=== PATIENT | male | born 1945 | race Caucasian/White ===

== ENCOUNTER 2017-02-12 18:02 | Emergency (ER) | payer MEDICARE, OTHER ==
[~2017-02-12] VITALS: Ht 170.2 cm; Wt 97.5 kg
[~2017-02-12 18:02] MED LIST: METO-239 PO; MULT-208 PO; PANT40TA5 PO
[2017-02-12 18:15] VITALS: BP 166/93
--- NOTE | 2017-02-12 18:30 | PHYS DOC ---
Past Medical History Past Medical History: GERD Additional Past Medical Histor: PVC'S, POLIO A CHILD Past Surgical History: Cholecystectomy, Knee Replacement Additional Past Surgical Histo: MUSCLE TRANSPLANT R THIGH D/T POLIO, L KNEE REPL., HERNIA Alcohol Use: Occasionally Drug Use: None Adult General Chief Complaint Chief Complaint: FINGER INJURY HPI HPI Patient is a 71 year old male presents to the emergency department stating that he had tripped over areas are again injured his left ring finger. He states that he has pain at the DIP joint. Patient has good sensation noted to the tip the finger cap refill brisk less than 2 seconds. Patient with decreased range of motion at the joint area. Review of Systems Review of Systems Constitutional: Denies fever or chills [] Eyes: Denies change in visual acuity, redness, or eye pain [] HENT: Denies nasal congestion or sore throat [] Respiratory: Denies cough or shortness of breath [] Cardiovascular: No additional information not addressed in HPI [] GI: Denies abdominal pain, nausea, vomiting, bloody stools or diarrhea [] : Denies dysuria or hematuria [] Musculoskeletal: Denies back pain. C/o pain and discomfort left ring finger Integument: Denies rash or skin lesions [] Neurologic: Denies headache, focal weakness or sensory changes [] Endocrine: Denies polyuria or polydipsia [] Allergies Allergies Allergies Coded Allergies Type Severity Reaction Last Updated Verified codeine Allergy Intermediate 03/09/16 No Physical Exam Physical Exam Constitutional: Well developed, well nourished, no acute distress, non-toxic appearance. [] HENT: Normocephalic, atraumatic, bilateral external ears normal, oropharynx moist, no oral exudates, nose normal. [] Eyes: PERRLA, EOMI, conjunctiva normal, no discharge. [] Neck: Normal range of motion, no tenderness, supple, no stridor. [] Cardiovascular:Heart rate regular rhythm, no murmur [] Lungs & Thorax: Bilateral breath sounds clear to auscultation [] Skin: Warm, dry, no erythema, no rash. [] Extremities: Left DIP ring finger tenderness, no cyanosis, no clubbing, ROM intact, no edema. Slight swelling noted. Cap refill brisk less than 2 seconds. Good sensation noted. Neurologic: Alert and oriented X 3, normal motor function, normal sensory function, no focal deficits noted. [] Psychologic: Affect normal, judgement normal, mood normal. [] Current Patient Data Vital Signs Vital Signs Date Time Temp Pulse Resp B/P (MAP) Pulse Ox O2 Delivery O2 Flow Rate FiO2 02/12/17 18:15 98.2 63 18 95 Room Air 98.2 EKG EKG [] Radiology/Procedures Radiology/Procedures [] Course & Med Decision Making Course & Med Decision Making Pertinent Labs and Imaging studies reviewed. (See chart for details) Patient was noted to have a dislocated finger at the DIP. Closed reduction was performed. Repeat x-ray identified finger to be in the normal position. X-rays read by Dr Jean. Patient will be placed in an aluminum splint. He'll be discharged home with recommendations to follow-up with his primary care physician in the next week. Recommended ice packs on 20 minutes off 20 minutes several times a day. Elevation as much as possible. Wear the splint clean follow -up with your primary care. Patient was provided with signs and symptoms to return back to emergency department. All questions and concerns been answered at patient's bedside. Patient agrees with discharge instructions treatment regimens and follow-up recommendations. [] Dragon Disclaimer Dragon Disclaimer This electronic medical record was generated, in whole or in part, using a voice recognition dictation system. Departure Departure Impression: Primary Impression: Dislocation, finger closed Disposition: 01 HOME, SELF-CARE Condition: STABLE Referrals: CLAUDIA MOULTON (PCP) Patient Instructions: Finger Dislocation, Folp-mz-Ooht Additional Instructions: Activity as tolerated. Wear the aluminum splint for the next week. Ice packs on 20 minutes off 20 minutes several times a day. Elevation as much as possible. Follow-up with your primary care physician within the next week. Return back to emergency prior signs symptoms of become worse. Problem Qualifiers Primary Impression: Dislocation, finger closed Encounter type: initial encounter Qualified Codes: S63.259A - Unspecified dislocation of unspecified finger, initial encounter ELENA REDDY COST ACCOUNTING ANALYST Feb 12, 2017 18:30
--- NOTE | 2017-02-13 08:23 | RAD ---
EXAM: 1. Left 4th finger 3 views, 185. 2. Left 4th finger 3 views, 194. HISTORY: Dislocation. COMPARISON: None. FINDINGS: The initial examination demonstrates dorsal dislocation of the 4th distal interphalangeal joint. There is an avulsion fracture at the volar base of the 4th distal phalanx. Another nondisplaced avulsion fracture is suspected at the volar base of the 4th middle phalanx. Distal interphalangeal osteoarthritis is severe at the 3rd and 4th rays with a superimposed erosive component. It is moderate to severe elsewhere. Proximal interphalangeal osteoarthritis is moderate diffusely. It is mild at the 1st carpometacarpal and triscaphe articulations. There is a chronic healed fracture deformity of the 5th metacarpal. A focus of melorheostosis is suspected laterally along the 3rd distal phalanx. The 2nd examination demonstrates reduction of the 4th distal interphalangeal joint. IMPRESSION: 1. 4th distal interphalangeal dislocation, status post reduction on the 2nd study. 2. Avulsion fractures at the volar bases of the 4th distal and middle phalanges. 3. Moderate to severe osteoarthritis as above, with a superimposed erosive component at the 3rd and 5th distal interphalangeal joints.
== END 2017-02-12 20:04 | disposition home or self-care (01) ==
LOC: ER 18:02
DX: S63.295A Dislocation of distal interphalangeal joint of left ring finger, initial encounter (principal); K21.9 Gastro-esophageal reflux disease without esophagitis; Z96.652 Presence of left artificial knee joint; Z88.5 Allergy status to narcotic agent; W18.40XA Slipping, tripping and stumbling without falling, unspecified, initial encounter; Y93.89 Activity, other specified; Y92.89 Other specified places as the place of occurrence of the external cause; Y99.8 Other external cause status
CPT/HCPCS: 26770; 73140; 99284-25

== ENCOUNTER → 2017-04-23 | Outpatient (CLI) | payer MEDICARE, OTHER ==
--- NOTE | 2017-04-23 14:20 | CARD ---
MR#: [id number] Date of Study: 04/23/2017 Ordering Physician: MAME NIEVES, Referring Physician: Praveen WINTERS: Claude Hazel APPROVED REPORT EXAM: Two-dimensional and M-mode echocardiogram with Doppler and color Doppler. Other Information Quality : AverageHR: 47bpm INDICATION Hypertension/HCVD RISK FACTORS Hypertension 2D DIMENSIONS RVDd3.6 (2.9-3.5cm)Left Atrium(2D)4.3 (1.6-4.0cm) IVSd0.9 (0.7-1.1cm)Aortic Root(2D)3.3 (2.0-3.7cm) LVDd5.0 (3.9-5.9cm)LVOT Diameter2.0 (1.8-2.4cm) PWd1.0 (0.7-1.1cm)LVDs3.3 (2.5-4.0cm) FS (%) 32.9 %SV71.1 ml LVEF(%)61.1 (>50%) Aortic Valve AoV Peak Raman.152.5cm/sAoV VTI33.2cm AO Peak GR.9.3mmHgLVOT Peak Raman.107.6cm/s AO Mean GR.5mmHgAVA (VMAX)1.64cm2 Mitral Valve MV E Pfvwnoly95.3cm/sMV DECEL ROGE282ka MV A Cmlkpwrz17.0cm/sMV MFJ588av E/A Ratio0.6MVA (PHT)1.66cm2 TDI E/Lateral E'8.3E/Medial E'10.0 Pulmonary Valve PV Peak Ieyhescx58.0cm/sPV Peak Grad.4mmHg Pulmonary Vein S1 Ttkmrxtp15.2cm/sD2 Qquzcycl84.7cm/s LEFT VENTRICLE The left ventricle is normal size. There is normal left ventricular wall thickness. The left ventricu lar systolic function is normal. The ejection fraction is estimated at 60%. There is normal LV segmen mary grace wall motion. Transmitral Doppler flow pattern is Grade I-abnormal relaxation pattern. RIGHT VENTRICLE The right ventricle is normal size. There is normal right ventricular wall thickness. The right ventr icular systolic function is normal. ATRIA The left atrium is borderline dilated. The right atrium size is normal. The interatrial septum is int act with no evidence for an atrial septal defect or patent foramen ovale as noted on 2-D or Doppler i maging. AORTIC VALVE The aortic valve is thickened but opens well. Doppler and Color Flow revealed no significant aortic r egurgitation. There is no significant aortic valvular stenosis. There is no aortic valvular vegetatio n. MITRAL VALVE The mitral valve is thickened but opens well. There is no evidence of mitral valve prolapse. There is no mitral valve stenosis. Doppler and Color Flow revealed no mitral valve regurgitation noted. TRICUSPID VALVE Was not visualized well. Trace tricuspid regurgitation. There is no tricuspid valve prolapse or veget ation. There is no tricuspid valve stenosis. PULMONIC VALVE Not visualized well. Doppler and Color Flow revealed no pulmonic valvular regurgitation. There is no pulmonic valvular stenosis. GREAT VESSELS The aortic root is normal in size. The IVC is enlarged in size and does not seem to collapse >50% wit h inspiration. PERICARDIAL EFFUSION There is no pleural effusion. There is no evidence of significant pericardial effusion. Critical Notification Critical Value: No <Conclusion> The left ventricular systolic function is normal. The ejection fraction is estimated at 60%. There is normal LV segmental wall motion. Transmitral Doppler flow pattern is Grade I-abnormal relaxation pattern. Trace tricuspid regurgitation. There is no evidence of significant pericardial effusion. Signed by : Mame Nieves, Electronically Approved : 04/23/2017 14:20:17
== END | disposition home or self-care (01) ==
LOC: ECHO 10:51
PROVIDERS: ATTEND Internal Medicine Cardiovascular Disease
DX: I11.9 Hypertensive heart disease without heart failure (principal)
CPT/HCPCS: 93306

== ENCOUNTER → 2018-09-15 | Outpatient (CLI) | payer MEDICARE, OTHER ==
[~2018-09-15] MED LIST changes: +REGADENOSON 0.4 MG/5 ML DISP.SYRIN. IV ONE
--- NOTE | 2018-09-15 11:58 | RAD ---
MR#: [id number] Date of Study: 09/15/2018 Ordering Physician: MAME CASTRO, Referring Physician: SCOTT WINTERS Tech: ZOE Osullivan, ARRT (R) (N) APPROVED REPORT Test Type: Pharmacological Stress Nurse/Tech: Viky Driscoll RN Test Indications: abnormal cardiac scan; Elevated calcium Cardiac History: No known cardiac Medications: See Electronic Medical Record Medical History: See Electronic Medical Record Resting Heart Rate: 44 bpm Resting Blood Pressure: 131/69mmHg Pretest Chest Pain: None Nurse/Tech Notes s1s2, clear LS Consent: The procedure was explained to the patient in lay terms. Informed consent was witnessed. Mohan eout was entered into [employer]. History and Stress Test performed by Viky Driscoll RN Pharm. Details Pharmacologic stress testing was performed using 0.4mg per 5ml of regadenoson given intravenously ove r 7-10 seconds. Stress Symptoms Syncope, Flushing POST EXERCISE Reason for Termination: Infusion complete Max HR: 71 bpm Max Blood Pressure: 142/72mmHg Chest Pain: No. Arrhythmia: No. ST Change: No. INTERPRETATION Stress EKG Conclusion: Baseline EKG showed sinus rhythm. No ischemic changes at peak stress. No arr hythmias. Imaging Protocol IMAGE PROTOCOL: Rest Tc-99m/stress Tc-99m 1 day Rest: Stress: Viability: Radiopharm.Tc99m NinvoptzkXp93m Sestamibi Tfvl70bNt 32mCi Img Date 09/15/2018 09/15/2018 Inj-Img Xdzz86fzg. 60min. Rest Admin Site:IV - Right AntecubitalAdministrator:RT Chase (R)(N) Stress Admin Site: IV - Right AntecubitalAdministrator: RT Maurizio (R)(N) STRESS DATA End Diast. Vol.82.0mlAv. Heart Rate55.0bpm End Syst. Vol.12.0mlCO Index BSA3.8L/min Myocardial Aiqd678.0gEject. Idfthqfo40.0% Stress Rates Pk. Fill Rate2.35EDV/secLVtime Pk. Fill 176.67msec Pk. Empty Rate3.23ESV/secLVtime Pk. Yazez916.69msec 1/3 Pk. Fill1.40EDV/sec Stress Scores Regional WT1.00Summed WT4.00 Regional WM0.00Summed WM0.00 Study quality was good. Left Ventricular size was Normal at Rest and Stress. Lung uptake was . Left Ventricular ejection fraction is 85%. The rest and stress images show normal perfusion, normal contraction and thickening. LV Perf. Quant 17 Seg. SSS4.00 17 Seg. SRS0.00 17 Seg. SDS4.00 Stress Defect Extent (% LAD)0.00Rest Defect Extent (% LAD)0.00Rev. Defect Extent (% LAD)0.00 Stress Defect Extent (% LCX) 15.00Rest Defect Extent (% LCX)7.50Rev. Defect Extent (% LCX)2.50 Stress Defect Extent (% RCA)0.00Rest Defect Extent (% RCA)0.00Rev. Defect Extent (% RCA)0.00 Stress Defect Extent (% JUNIE)2.60Rest Defect Extent (% JUNIE)1.30Rev. Defect Extent (% JUNIE)0.40 Conclusion 1. Regadenoson cardioisotope stress test did not show any evidence of ischemia or infarct. 2. Normal left ventricular systolic function with ejection fraction calculated at 85%. 3. Low risk for cardiac events. Signed by : Mame Castro, Electronically Approved : 09/15/2018 11:57:25
== END | disposition home or self-care (01) ==
LOC: NM 09:09
PROVIDERS: ATTEND Internal Medicine Cardiovascular Disease
DX: R93.1 Abnormal findings on diagnostic imaging of heart and coronary circulation (principal)
CPT/HCPCS: 78452; 93017; A9500; J2785

== ENCOUNTER → 2019-03-18 | Outpatient (CLI) | payer MEDICARE, OTHER ==
[~2019-03-18] MED LIST changes: -PANT40TA5 PO; +PANT40TA77 PO; -REGADENOSON 0.4 MG/5 ML DISP.SYRIN. IV ONE
--- NOTE | 2019-03-18 09:45 | CARD ---
MR#: [id number] Date of Study: 03/18/2019 Ordering Physician: MAME CASTRO, Referring Physician: MAME CASTRO Tech: Raine Padilal RDCS APPROVED REPORT EXAM: Two-dimensional and M-mode echocardiogram with Doppler and color Doppler. Other Information Quality : Good INDICATION Hypertension/HCVD 2D DIMENSIONS RVDd3.1 (2.9-3.5cm)Left Atrium(2D)3.4 (1.6-4.0cm) IVSd0.9 (0.7-1.1cm)Aortic Root(2D)3.0 (2.0-3.7cm) LVDd4.5 (3.9-5.9cm)LVOT Diameter2.2 (1.8-2.4cm) PWd0.8 (0.7-1.1cm)LVDs2.8 (2.5-4.0cm) FS (%) 38.6 %SV63.7 ml LVEF(%)60.0 (>50%) Aortic Valve AoV Peak Raman.130.8cm/sAoV VTI28.1cm AO Peak GR.6.8mmHgLVOT Peak Raman.122.8cm/s LVOT VTI 28.27cmAO Mean GR.4mmHg ELIAS (VMAX)3.45gw2MWP (VTI)3.98cm2 Mitral Valve MV E Djeypyij93.4cm/sMV DECEL YNCG732um MV A Jrmywrvl02.2cm/sMV PUQ732ml E/A Ratio0.6MVA (PHT)2.05cm2 TDI E/Lateral E'9.3E/Medial E'9.4 Tricuspid Valve TR P. Xzsqraei884qj/sRAP GMHIIFIR1blJa TR Peak Gr.08mbWqUTKZ55fwZz Pulmonary Vein S1 Epyaquux73.8cm/sD2 Tspavzxg19.1cm/s LEFT VENTRICLE The left ventricle is normal size. There is normal left ventricular wall thickness. The left ventricu lar systolic function is normal and the ejection fraction is within normal range. The Ejection Fracti on is 55-60%. There is normal LV segmental wall motion. Transmitral Doppler flow pattern is Grade I-a bnormal relaxation pattern. RIGHT VENTRICLE The right ventricle is normal size. The right ventricular systolic function is normal. ATRIA The left atrium size is normal. The right atrium size is normal. The interatrial septum is intact wit h no evidence for an atrial septal defect or patent foramen ovale as noted on 2-D or Doppler imaging. AORTIC VALVE The aortic valve is calcified but opens well. Doppler and Color Flow revealed no significant aortic r egurgitation. There is no significant aortic valvular stenosis. MITRAL VALVE The mitral valve is normal in structure and function. There is no evidence of mitral valve prolapse. There is no mitral valve stenosis. Doppler and Color Flow revealed no mitral valve regurgitation note d. TRICUSPID VALVE The tricuspid valve is normal in structure and function. Doppler and Color Flow revealed trace tricus pid regurgitation. The PA pressure was estimated at 23 mmHg. There is no tricuspid valve stenosis. PULMONIC VALVE The pulmonic valve is not well visualized. Doppler and Color Flow revealed no significant pulmonic va lvular regurgitation. There is no pulmonic valvular stenosis. GREAT VESSELS The aortic root is normal in size. The ascending aorta is normal in size. The IVC is normal in size a nd collapses >50% with inspiration. PERICARDIAL EFFUSION There is no evidence of significant pericardial effusion. Critical Notification Critical Value: No <Conclusion> The left ventricular systolic function is normal and the ejection fraction is within normal range. Th e Ejection Fraction is 55-60%. There is normal LV segmental wall motion. Signed by : Micheal Magallanes, Electronically Approved : 03/18/2019 09:44:43
== END | disposition home or self-care (01) ==
LOC: ECHO 07:48
PROVIDERS: ATTEND Internal Medicine Cardiovascular Disease
DX: I35.8 Other nonrheumatic aortic valve disorders (principal); I10 Essential (primary) hypertension
CPT/HCPCS: 93306

== ENCOUNTER → 2019-04-20 | Outpatient (CLI) | payer MEDICARE ==
--- NOTE | 2019-04-20 09:55 | KCIC ---
EXAMINATION: Magnetic resonance imaging (MRI) of the lumbar spine without contrast 04/20/2019 8:45 AM HISTORY: Lumbar radiculopathy. New onset of bilateral posterior thigh pain. Right leg buckling. TECHNIQUE: Multiplanar multi-weighted MRI of the lumbar spine was performed without intravenous contrast using the standard lumbar spine protocol. Contrast information: None administered. COMPARISON: None available. FINDINGS: The alignment of the lumbar spine is normal. Vertebral body heights are maintained. There is an osseous hemangioma at L2 measuring 13 mm. There are no compression fractures. The conus medullaris terminates at the level of L1. The distal spinal cord signal intensity is normal. Mild disc desiccation and disc height loss noted at L4-L5. There is disc desiccation from L2-L3 through L5-S1. Minimal edema is noted along the bilateral facet joints at L4-L5. Limited views of the abdomen and pelvis show no soft tissue abnormality. The aorta is normal. L2-L3: There is mild circumferential disc bulge. There is mild facet arthropathy. Mild right neuroforaminal stenosis. No spinal canal stenosis. L3-L4: There is mild disc bulge asymmetric to the left. There is mild facet arthropathy. Mild bilateral neuroforaminal stenosis. No significant spinal canal stenosis. L4-L5: There is a moderate disc bulge with central disc protrusion. There is moderate facet arthropathy with fluid in the left facet joint. There is moderate bilateral neuroforaminal stenosis. Moderate spinal canal stenosis, exacerbated by ligamentum flavum infolding. There is bilateral lateral recess stenosis, left greater than right. L5-S1: There is mild disc bulge with right far lateral disc protrusion. Is moderate right and mild left facet arthropathy. Mild right neuroforaminal stenosis. No spinal canal stenosis. IMPRESSION: Mild degenerative changes of the lumbar spine are present, as described in detail above. Findings are most significant at L4-L5 with associated facet arthropathy with edema along the facet joints, left greater than right. IMPRESSION: Mild degenerative changes of the lumbar spine as described in detail above. Electronically signed by: Nessa Ross MD (04/20/2019 9:53 AM) [facility]
== END | disposition home or self-care (01) ==
LOC: KCIC MRI 08:27
PROVIDERS: ATTEND Orthopaedic Surgery
DX: M51.17 Intervertebral disc disorders with radiculopathy, lumbosacral region (principal); M12.88 Other specific arthropathies, not elsewhere classified, other specified site; M47.26 Other spondylosis with radiculopathy, lumbar region; M48.07 Spinal stenosis, lumbosacral region
CPT/HCPCS: 72148

== ENCOUNTER → 2019-05-26 | Outpatient (CLI) | payer MEDICARE ==
--- NOTE | 2019-05-26 16:12 | KCIC ---
EXAM: Lumbar spine, flexion and extension. HISTORY: Pain. COMPARISON: MRI dated 04/20/2019. FINDINGS: Lateral neutral, flexion and extension views of the lumbar spine are obtained. There is grade 1 anterolisthesis of L5 on S1 which does not significantly change between flexion and extension. There is also minimal grade 1 anterolisthesis of L4 and L5 which does not change between flexion and extension. There is facet arthropathy at the mid and lower lumbar levels. There is minimal endplate remodeling. No fracture is seen. IMPRESSION: 1. Grade 1 anterolisthesis of L5 on S1, and to a lesser extent, L4 and L5. This does not significantly change between infection and extension. 2. Degenerative facet arthropathy predominantly at the lower lumbar levels. Electronically signed by: Celine López MD (05/26/2019 4:09 PM) [facility] [place]
== END | disposition home or self-care (01) ==
LOC: KCIC 15:47
PROVIDERS: ATTEND Neurological Surgery
DX: M43.17 Spondylolisthesis, lumbosacral region (principal); G89.29 Other chronic pain; M12.88 Other specific arthropathies, not elsewhere classified, other specified site
CPT/HCPCS: 72100

== ENCOUNTER → 2019-06-08 | Outpatient (CLI) | payer MEDICARE ==
[~2019-06-08] MED LIST changes: +ACET500T68 PO; +FLUT9.9S NS; +IBUP-1027 PO; +IOHEXOL 180 MG/ML 10 ML VIAL. ONE; +methylPREDNISolone ACETATE 40 MG/ML VIAL. ONE; +methylPREDNISolone ACETATE 80 MG/ML VIAL. ONE
--- NOTE | 2019-06-08 23:09 | PAIN ---
DATE OF SERVICE: 06/08/2019 INITIAL CONSULTATION FOR PAIN CLINIC CHIEF COMPLAINT: Low back and right lower extremity pain for about 3 months. HISTORY OF PRESENT ILLNESS: The patient reports that it increased without any specific injury or action he is aware of. It became worse with time, low back into the right greater than left lower extremity, mostly in the posterior gluteus, posterior thighs and into the lateral thighs, anterior thighs, medial thighs as well as some burning in the feet bilaterally. The patient reports the pain became fairly significant, fairly quickly over the past few months. The patient reports it is sharp and shooting across the low back, tingling, sometimes in the legs, radiating into the lower extremities as noted, again worse on the right, but present bilaterally and a burning sensation as well as in the feet. The patient did have MRI scan of the lumbar spine showing some significant protrusion at L4-L5 with a central disk protrusion, moderate facet arthropathy, moderate bilateral neural foraminal stenosis and moderate spinal canal stenosis, also some disk bulge at L5-S1 with far right lateral disk protrusion and mild right neural foraminal stenosis as well. Mild bilateral neural foraminal stenosis seen at L3-L4, asymmetric to the left as well. The patient rates his disability from 0-10, 10 being the worst, is an 8 with family home responsibilities, 10 with recreation, 7 with social activity, 8 with sexual behavior and 4 with self-care and 3 with life support activities. The patient reports the pain awakens him from sleep only very rarely, does not affect his bowel or bladder control, but does affect his ability to walk, sometimes uses a cane, does not have one with him on his visit today. The patient reports no loss of function, better with sitting or lying down, but much worse with standing, walking and changing positions. PAST MEDICAL HISTORY: Significant for PVCs and irregular heart rhythm, and arthritis. Also history of polio as a child. 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 Previous cataract surgery, left knee replacement, cholecystectomy, hemorrhoidectomy, and tonsillectomy. CURRENT MEDICATIONS: Include multivitamins, metoprolol, fluticasone nasal spray, ibuprofen, and Tylenol. ALLERGIES: The patient has no known drug allergies. FAMILY HISTORY: Significant for no major medical problems or conditions that he is aware of. SOCIAL HISTORY: The patient drinks occasionally about 2 alcoholic drinks a month on average. Does not use any tobacco products. Denies any illegal, illicit or recreational drugs. He is , lives with his spouse, lives locally in [place], [place] and is currently retired. REVIEW OF SYSTEMS: The patient's review of systems is positive for those items mentioned in history of present illness. All systems reviewed and otherwise negative. It is complete, full and well documented on the patient's chart. PHYSICAL EXAMINATION: VITAL SIGNS: The patient's blood pressure is 155/79, pulse 57, respirations 18, temperature 98.0 degrees Fahrenheit, height is 5 feet 7 inches, and weight is 218 pounds. GENERAL: The patient is awake, alert, oriented, appropriate, very pleasant demeanor. HEENT: Shows normocephalic, atraumatic. Extraocular movements are intact and symmetrical. Oral cavity: Mucous membranes moist and pink. Dentition is intact. NECK: Shows anterior throat supple without palpable lymphadenopathy noted. Swallow reflex symmetrical. CHEST: Shows normal on inspection. Breath sounds are clear to auscultation bilaterally. HEART: Shows S1, S2 clear. No murmurs auscultated. ABDOMEN: Soft, nontender, nondistended. No palpable organomegaly is noted. No rebound or guarding demonstrated. BACK: Shows spine grossly in the midline. Normal appearing thoracic kyphosis and minor flattening of lumbar lordotic curvature. Lumbar paraspinous muscle shows symmetrical on inspection, on palpation shows some mild tenderness in the low lumbar distribution only bilaterally, but only diffusely without significant radiation. No tenderness over the spinous processes, sacrum or sacroiliac regions. The patient has good rotational motion of lumbar spine, both laterally greater than 10 degrees right and left as well as extension greater than 10 degrees, forward flexion at 45 degrees without significant pain reported. EXTREMITIES: The patient's lower extremities show deep tendon reflexes at 1+ in the patellar and tendo-calcaneus tendons are equal. Motor exam is approximately 3 on a scale of 5 with right quadriceps and hamstring flexion and 5/5 on the left with significant size difference between the right quadriceps and left quadriceps and the size of the thigh much smaller on the right than the left again from previous polio and muscle transplant on the right side. Peripheral pulses are 1+ posterior tibia. No peripheral edema is noted. Lower extremities are warm and dry to touch, equal in color. No edema bilaterally. The patient's skin shows warm and dry, good turgor. No edema. No sores, rashes or bruising throughout. The patient is able to stand, stand on his toes without significant difficulty or loss of balance, walks with a slight favoring gait, does appear to favor the right lower extremity fairly significantly although the patient reports this is partially due to his polio history as well. IMPRESSION: 1. This is a 73-year-old male with approximate 2-month history of increasing pain, low back, right greater than left lower extremity in a radicular fashion. 2. MRI scan of lumbar spine as noted. 3. History of polio. 4. Irregular heart rhythm. 5. Arthritis. PLAN: Options were discussed with the patient and the patient's spouse who accompanied him to visit today including conservative medical managements, continued physical therapies, interventional procedure and interventional techniques. We discussed a lumbar epidural steroid injection using description as well as anatomical models to describe the procedure. Risks were then discussed including, but not limited to bleeding, infection, possibility of epidural hematoma, subsequent neurological compromise, dural puncture, headaches, spinal cord and/or nerve damage, side effects of steroid medication and poor results regarding pain control. The patient understands and wished to proceed. The patient will return to clinic in approximately 2 weeks for followup. He was counseled on return appointment, activity level and side effects to be aware of. DIAGNOSES: Lumbar radiculopathy with lumbar degenerative disk disease, lumbar spinal stenosis. PROCEDURE: Lumbar epidural steroid injection, translaminar approach at L4-L5 level using C-arm fluoroscopic guidance under sterile prep and drape using local anesthetic. MEDICATION INJECTED: A total of 120 mg Depo-Medrol plus 10 mL of preservative-free normal saline and 2 mL of contrast. CONDITION AT DISCHARGE: Stable. The patient tolerated the procedure well, had no complications. CHRISTOPHER ESCOBEDO MD DR: VARGAS/justen JOB#: [id number] / [id number]
== END ==
LOC: PNCL 08:11
PROVIDERS: ATTEND Anesthesiology
DX: M51.16 Intervertebral disc disorders with radiculopathy, lumbar region (principal); M48.061 Spinal stenosis, lumbar region without neurogenic claudication; Z87.39 Personal history of other diseases of the musculoskeletal system and connective tissue; Z96.652 Presence of left artificial knee joint; Z90.49 Acquired absence of other specified parts of digestive tract; Z98.890 Other specified postprocedural states; Z98.49 Cataract extraction status, unspecified eye; Z72.89 Other problems related to lifestyle; Z96.1 Presence of intraocular lens
CPT/HCPCS: 62323; J1030; J1040; Q9965

== ENCOUNTER → 2019-06-17 | Outpatient (CLI) | payer MEDICARE ==
--- NOTE | 2019-06-17 21:52 | PAIN ---
DATE OF SERVICE: 06/17/2019 PROGRESS NOTE FOR PAIN CLINIC DIAGNOSES: Lumbar radiculopathy with lumbar degenerative disk disease, lumbar spinal stenosis. HISTORY OF PRESENT ILLNESS: The patient is a 74-year-old male who returns for followup status post lumbar epidural steroid injection x 1. The patient reports about 70% improvement in the low back and right lower extremity pain. The patient reports that over the past few days, it is beginning to become more noticeable in the low back and right leg, but otherwise doing very well. The patient has increased his activity, distance walking, doing household activities, traveling with greater ease and comfort and is very pleased with his progress. It is not waking him from sleep at night. The patient reports the pain is 8 on a scale of 10 at its worst over the past week, 4 on average, 2 at its least and is a 4 today. The patient reports it is a tingling, aching in the right leg and the low back, but again only very mild. The patient reports no new changes, no bowel or bladder incontinence or other complaints. PHYSICAL EXAMINATION: VITAL SIGNS: The patient's blood pressure 147/88, pulse 55, respirations 18, temperature 98.3 degrees Fahrenheit, weight is 220 pounds. GENERAL: The patient is awake, alert, oriented, appropriate, very pleasant demeanor. HEENT: Head shows normocephalic, atraumatic. Extraocular movements are intact and symmetrical. Oral cavity: Mucous membranes moist and pink. Dentition is intact. NECK: Shows anterior throat is supple without palpable lymphadenopathy noted. Swallow reflex symmetrical. CHEST: Shows normal on inspection. Breath sounds are clear bilaterally. HEART: Shows S1, S2 clear. No murmurs auscultated. ABDOMEN: Soft, nontender, nondistended. No palpable organomegaly is noted. No rebound or guarding demonstrated. BACK: Shows spine grossly in the midline. Normal appearing thoracic kyphosis and lumbar lordotic curvature. Lumbar paraspinous muscle shows symmetrical on inspection, on palpation some moderate tenderness diffusely bilaterally, only diffusely without significant radiation. The patient shows good rotational motion of lumbar spine, both laterally as well as extension and flexion, without significant tenderness. EXTREMITIES: The patient's lower extremities show deep tendon reflexes at 1+ in the patellar and tendo calcaneus tendons. Motor exam is approximately 4 on a scale of 5 on the right and 5/5 on the left. Peripheral pulses are 1+ posterior tibia. No peripheral edema is noted bilaterally. Options were discussed with the patient. The patient's old chart was reviewed as is his current medication regimen updated. Current review of systems updated today as well. We will proceed with a second in the series of lumbar epidural steroid injection today with fluoroscopic guidance. Risks were again discussed including, but not limited to bleeding, infection, possibility of epidural hematoma, subsequent neurological compromise, dural puncture, headaches, spinal cord and/or nerve damage, side effects of steroid medication and poor results regarding pain control. The patient understands and wished to proceed. The patient will return to clinic in approximately 2 weeks for followup. He was counseled on return appointment, activity level and side effects to be aware of. DIAGNOSES: Lumbar radiculopathy with lumbar degenerative disk disease, lumbar spinal stenosis. PROCEDURE: Lumbar epidural steroid injection, translaminar approach at L4-L5 level using C-arm fluoroscopic guidance under sterile prep and drape using local anesthetic. MEDICATION INJECTED: A total of 120 mg Depo-Medrol plus 10 mL of preservative-free normal saline and 2 mL of contrast. CONDITION AT DISCHARGE: Stable. The patient tolerated the procedure well, had no complications. CHRISTOPHER ESCOBEDO MD DR: VARGAS/justen JOB#: [id number] / [id number]
== END ==
LOC: PNCL 10:33
PROVIDERS: ATTEND Anesthesiology
DX: M51.16 Intervertebral disc disorders with radiculopathy, lumbar region (principal); M48.061 Spinal stenosis, lumbar region without neurogenic claudication
CPT/HCPCS: 62323; J1030; J1040; Q9965

== ENCOUNTER → 2019-09-22 | Outpatient (CLI) | payer MEDICARE ==
[~2019-09-22] MED LIST changes: +ASPI-630 PO; +CRESTOR5 MG PO
--- NOTE | 2019-09-22 09:12 | PAIN ---
DATE OF SERVICE: 09/22/2019 PROGRESS NOTE FOR PAIN CLINIC DIAGNOSES: Lumbar radiculopathy with lumbar degenerative disk disease, lumbar spinal stenosis. HISTORY OF PRESENT ILLNESS: The patient is a 74-year-old male who returns for followup status post lumbar epidural steroid injection x 2, last seen 06/17/2019. The patient did very well with about 80% improvement after the last injection. Legs are doing much better. Still some pain in the back, however, bilaterally across the low back, worse with walking, standing, changing positions, better with sitting or lying down. The patient reports it awakens him from sleep occasionally, but maybe only once a night at the most. The patient reports no new motor or sensory deficits. Initially, he is doing quite a bit better, doing distance walking, traveling with greater ease and comfort, doing household activity with greater ease. Now, the patient reports the pain again returning back in the legs, 9 on a scale of 10 at its worst over the past week, 5 on average, 2 at its least and is a 2 today. The patient reports it is sharp and burning, tingling at times, radiating across the low back and the legs, posterior gluteus, lateral thighs, anterior thighs, but again much improved in the legs, still some fairly significant pain across the back. PHYSICAL EXAMINATION: VITAL SIGNS: The patient's blood pressure 124/74, pulse 59, respirations 16, temperature 98.3 degrees Fahrenheit, height is 5 feet 7 inches and weight is 225 pounds. GENERAL: The patient is awake, alert, oriented, appropriate, very pleasant demeanor. HEENT: Head shows normocephalic, atraumatic. Extraocular movements are intact and symmetrical. Oral cavity: Mucous membranes moist and pink. Dentition is intact. NECK: Shows anterior throat supple without palpable lymphadenopathy noted. Swallow reflex symmetrical. CHEST: Shows normal on inspection. Breath sounds are clear bilaterally. HEART: Shows S1, S2 clear. No murmurs auscultated. ABDOMEN: Soft, nontender, nondistended. BACK: Shows spine grossly in the midline. Normal appearing thoracic kyphosis and minor flattening of lumbar lordotic curvature. Lumbar paraspinous muscle shows symmetrical on inspection and palpation shows some moderate tenderness diffusely bilaterally, but only diffusely without significant radiation. The patient has good rotational motion of lumbar spine, both laterally greater than 10 degrees right and left as well as extension greater than 10 degrees, forward flexion 45 degrees without significant pain. EXTREMITIES: Lower extremities show deep tendon reflexes at 1+ in the patellar and tendo calcaneus tendons are equal. Motor exam is 5/5 on the left and 4/5 on the right. The patient's peripheral pulses are 1+ posterior tibia. No peripheral edema is noted bilaterally. Options were discussed with the patient. The patient's old chart was reviewed as his current medication regimen updated. Current review of systems updated today as well and we will proceed with a third in the series of lumbar epidural steroid injection today with fluoroscopic guidance. Risks were discussed including but not limited to bleeding, infection, possibility of epidural hematoma, subsequent neurological compromise, dural puncture, headaches, spinal cord and/or nerve damage, side effects of steroid medication and poor results regarding pain control. The patient understands and wished to proceed. The patient will return to clinic in approximately 2 weeks for followup. He was counseled on return appointment, activity level and side effects to be aware of. DIAGNOSES: Lumbar radiculopathy with lumbar degenerative disk disease, lumbar spinal stenosis. PROCEDURE: Lumbar epidural steroid injection, translaminar approach L4-L5 level using C-arm fluoroscopic guidance under sterile prep and drape using local anesthetic. MEDICATION INJECTED: A total of 120 mg Depo-Medrol plus 10 mL of preservative-free normal saline and 2 mL of contrast. CONDITION AT DISCHARGE: Stable. The patient tolerated the procedure well, had no complications. CHRISTOPHER ESCOBEDO MD DR: VARGAS/justen JOB#: [id number] / [id number]
== END ==
LOC: PNCL 08:00
PROVIDERS: ATTEND Anesthesiology
DX: M51.16 Intervertebral disc disorders with radiculopathy, lumbar region (principal); M48.061 Spinal stenosis, lumbar region without neurogenic claudication; M54.5 Low back pain; I10 Essential (primary) hypertension; K21.9 Gastro-esophageal reflux disease without esophagitis; M19.90 Unspecified osteoarthritis, unspecified site; F17.210 Nicotine dependence, cigarettes, uncomplicated; Z90.49 Acquired absence of other specified parts of digestive tract; Z98.52 Vasectomy status; Z96.652 Presence of left artificial knee joint; Z98.49 Cataract extraction status, unspecified eye; Z96.1 Presence of intraocular lens; Z98.890 Other specified postprocedural states
CPT/HCPCS: 62323; J1030; J1040; Q9965

== ENCOUNTER → 2020-01-13 | Outpatient (CLI) | payer MEDICARE ==
[~2020-01-13] MED LIST changes: +FAMO20TA5 PO; +LORA10CA PO; +NAPR-695 PO; +UBID50TA PO; +VARD20TA2 PO
--- NOTE | 2020-01-13 11:13 | PDOC ---
Progress Note - Pain Clinic Date of Service: DOS: DATE: 01/13/20 TIME: 11:09 Diagnosis: Dx: Lumbar radiculopathy with lumbar degenerative disc disease and lumbar spinal stenosis Right wrist joint pain with carpometacarpal joint osteoarthritis History or Present Illness: HPI: 84-year-old male returns follow-up status post lumbar epidural steroid injections x3 last seen September 22, 2019 patient which did very about 50% improvement for the first 3 months pain is returning down the low back and right lower extremity posterior gluteus posterior lateral thigh lateral anterior thigh anterior medial thigh worse with walking standing changing positions better with sitting or laying down does not awaken him from sleep generally but over the past few weeks it has been every 5-6 hours. Patient ports a 10 on scale 10 is worse over the past week 7 on average to its least and a 5 today. Patient scribes the pain as stabbing and sharp in the low back and the right leg becoming more constant more severe with activity better with sitting or laying down but worse with walking standing change positions. Initially was doing much better with distance walking doing household activities and traveling with greater ease and comfort. Patient reports no new motor or sensory deficits no new bowel or bladder incontinence. Patient reports significant pain in the right wrist did have x-rays today showing some significant carpometacarpal joint osteoarthritis Physical Exam: VS: Blood pressure 119/69 pulse 59 respirations 18 temperature 98.6 F height is 5 feet 7 inches weight 220 pound PE: PHYSICAL EXAMINATION: GENERAL: The patient is awake, alert, oriented, appropriate, very pleasant demeanor HEENT: Shows normocephalic, atraumatic. Extraocular movements are intact and symmetrical. Oral cavity: Mucous membranes moist and pink. NECK: Shows anterior throat supple without palpable lymphadenopathy noted. Swallow reflex symmetrical. CHEST: Shows normal on inspection. Breath sounds are clear bilaterally, no rales rhonchi or wheezes auscultated. HEART: Shows S1, S2 clear. No murmurs auscultated. ABDOMEN: Soft, nontender, nondistended, obese. No palpable organomegaly is noted. No rebound or guarding demonstrated. BACK: Shows spine grossly in the midline. Normal-appearing cervical lordotic curvature. There is slightly increased thoracic kyphosis, some minor flattening of the lumbar lordotic curvature. Lumbar paraspinous muscles show symmetrical on inspection, on palpation shows some moderate tenderness diffusely throughout the upper, middle and lower distribution of the paraspinous muscles bilaterally, but without specific trigger points, without radiation of pain. The patient has good rotational motion of the lumbar spine, both laterally as well as extension and flexion without significant difficulty. No tenderness over the spinous processes, sacrum or sacroiliac regions. EXTREMITIES: Lower extremities show deep tendon reflexes 1+ in the patellar and tendo calcaneus tendons. Motor exam is 4 on a scale of 5 with right dorsiflexion, extension, quadriceps and hamstring flexion and 5/5 on the left. Peripheral pulses are 1+ posterior tibial. No peripheral edema is noted bilaterally. Lower extremities are warm and dry to touch, equal in color and appearance. The patient is able to stand, stand on his toes but walks with a slight antalgic gait slightly wide stance as well but does not appear to favor the right or left lower extremity significantly does not use any assistive devices ambulate.. SKIN: Shows warm and dry, good turgor. No edema. No sores, rashes or bruising throughout. Procedure: Procedure: Options were discussed with the patient. Patient's old chart was reviewed his his current medication regimen updated current review of systems updated today as well. We will proceed with a lumbar epidural steroid injection as a first in the series with fluoroscopic guidance. Risks were discussed including but not limited to: Bleeding, infection, possibility of epidural hematoma and subsequent neurological compromise, dural puncture, headaches, spinal cord and/or nerve damage, side effects of steroid medication, and poor results regarding pain control. Patient understands wished to proceed. Patient return to clinic in approximate 2 weeks for follow-up was counseled as return appointment activity level and side effects to be aware of. Medication Injected: Med Injected: Procedure is lumbar epidural steroid injection under local anesthetic using sterile prep and drape at the L4-5 level using C-arm fluoroscopic guidance in both AP and lateral views medications injected is 120 mg Depo-Medrol + 10 mL preservative-free normal saline and 2 mL contrast- condition at discharge is stable patient tolerated procedure well had no complications. Condition at Discharge: Condition at Discharge: Condition at discharge is stable patient tolerated procedure well had no complications. CHRISTOPHER ESCOBEDO MD Jan 13, 2020 11:13
== END | disposition home or self-care (01) ==
LOC: PNCL 10:06
PROVIDERS: ATTEND Anesthesiology
DX: M51.16 Intervertebral disc disorders with radiculopathy, lumbar region (principal); M48.061 Spinal stenosis, lumbar region without neurogenic claudication; M19.031 Primary osteoarthritis, right wrist; I10 Essential (primary) hypertension; K21.9 Gastro-esophageal reflux disease without esophagitis; Z88.5 Allergy status to narcotic agent; Z79.899 Other long term (current) drug therapy; Z79.82 Long term (current) use of aspirin; Z72.89 Other problems related to lifestyle
CPT/HCPCS: 62323; J1030; J1040; Q9965

== ENCOUNTER → 2020-01-27 | Outpatient (CLI) | payer MEDICARE ==
[~2020-01-27] MED LIST changes: +BUPIVACAINE MPF 0.25% 10 ML VIAL. ONE; -methylPREDNISolone ACETATE 80 MG/ML VIAL. ONE
--- NOTE | 2020-01-27 09:30 | PDOC ---
Progress Note - Pain Clinic Date of Service: DOS: DATE: 01/27/20 TIME: 09:24 Diagnosis: Dx: Lumbar radiculopathy with lumbar degenerative disc disease lumbar spinal stenosis and lumbar and lumbosacral spondylosis Right wrist first carpometacarpal joint pain with osteoarthritis History or Present Illness: HPI: 74-year male returns follow-up status post lumbar epidural to injection x1. Patient reports about 3 days improvement 100% in the low back and bilateral lower extremities patient ports the pain is returning now in the low back itself but not into the right leg like it was previously patient reports his pain is a 10 on scale 10 is worse with the past week 6 on average to its least and this is in regard to his right wrist which is his chief complaint today. Patient repo rts the wrist is painful with any activity movement weightbearing flexion extension especially external rotation of the right thumb patient ports that sharp and stabbing on and off in intensity he is right-handed and this is becoming much more noticeable and painful. Patient reports with his regard to his back is doing much better with working activities household activities walki ng greater distances least for first 3 days the pain was completely gone old right leg is still completely improved but the back itself is painful. Patient reports no new motor or sensory deficits no new bowel or bladder incontinence or other complaints at this time. Physical Exam: VS: Blood pressure is 117/73 pulse 53 respiration 16 temperature 98.1 F height is 5 foot 7 inches is 219 pounds PE: PHYSICAL EXAMINATION: GENERAL: The patient is awake, alert, oriented, appropriate, very pleasant demeanor HEENT: Shows normocephalic, atraumatic. Extraocular movements are intact and symmetrical. NECK: Shows anterior throat supple without palpable lymphadenopathy noted. Swallow reflex symmetrical. CHEST: Shows normal on inspection. Breath sounds are clear bilaterally. HEART: Shows S1, S2 clear. No murmurs auscultated. ABDOMEN: Soft, nontender, nondistended, obese. No palpable organomegaly is noted. No rebound or guarding demonstrated. BACK: Shows spine grossly in the midline. Normal-appearing cervical lordotic curvature. There is slightly increased thoracic kyphosis, some minor flattening of the lumbar lordotic curvature. Lumbar paraspinous muscles show symmetrical on inspection, on palpation shows some moderate tenderness diffusely throughout the upper, middle and lower distribution of the paraspinous muscles bilaterally without specific trigger points, without radiation of pain. The patient has good rotational motion of the lumbar spine, with extension causing some significant pain with axial loading of the low back at 10 degrees forward flexion 45 degrees decreases his pain right and left lateral rotation show some mild tenderness more to the right than the left but without specific radiation. No tenderness over the spinous processes, sacrum or sacroiliac regions. EXTREMITIES: Lower extremities show deep tendon reflexes 1+ in the patellar and tendo calcaneus tendons. Motor exam is 4 on a scale of 5 with right dorsiflexion, extension, quadriceps and hamstring flexion and 5/5 on the left. Peripheral pulses are 1+ posterior tibial. No peripheral edema is noted bilaterally. Lower extremities are warm and dry to touch, equal in color and appearance. Upper extremities show patient's right wrist with first carpometacarpal joint appearance of swelling compared to the left hand with palpation shows significant severe tenderness over the posterior and anterior aspect of the first carpometacarpal joint on the right hand. SKIN: Shows warm and dry, good turgor. No edema. No sores, rashes or bruising throughout. Procedure: Procedure: Options were discussed with the patient. Patient's old chart was reviewed his his current medication regimen updated current review of systems updated today as well. We will proceed with right first carpometacarpal joint injection with fluoroscopic guidance. Risks were discussed including but not limited to bleeding infection possibility of spread of local anesthetic with numbness side effects steroid medication exposure fluoroscopy and poor results regarding pain control. Patient understands wishes to proceed. Patient return to clinic in approximately 2 weeks for follow-up Medication Injected: Med Injected: Under sterile prep and drape patient in sitting position using C-arm fluoroscopic guidance patient's right hand and wrist was visualized and first carpometacarpal joint identified and injected using 25-gauge needle with negative aspiration, 0.5 cc contrast, 40 mg Depo-Medrol, 2 cc 0.25% bupivacaine were then injected without difficulty. Patient tolerated the procedure well had no complications. Condition at Discharge: Condition at Discharge: Condition at discharge stable patient tolerated procedure well had no complications. CHRISTOPHER ESCOBEDO MD Jan 27, 2020 09:30
== END | disposition home or self-care (01) ==
LOC: PNCL 08:54
PROVIDERS: ATTEND Anesthesiology
DX: M19.031 Primary osteoarthritis, right wrist (principal); M51.16 Intervertebral disc disorders with radiculopathy, lumbar region; M48.061 Spinal stenosis, lumbar region without neurogenic claudication; M47.896 Other spondylosis, lumbar region; I10 Essential (primary) hypertension; K21.9 Gastro-esophageal reflux disease without esophagitis; M47.897 Other spondylosis, lumbosacral region; Z88.5 Allergy status to narcotic agent; Z79.899 Other long term (current) drug therapy; Z98.890 Other specified postprocedural states
CPT/HCPCS: 20605; 77002; J1030; J3490; Q9965; 20600

== ENCOUNTER → 2020-02-10 | Outpatient (CLI) | payer MEDICARE ==
--- NOTE | 2020-02-10 09:31 | PDOC ---
Progress Note - Pain Clinic Date of Service: DOS: DATE: 02/10/20 TIME: 09:26 Diagnosis: Dx: Lumbar radiculopathy with lumbar degenerative disc disease and lumbar spondylosis Right wrist joint pain with primary osteoarthritis History or Present Illness: HPI: 74-year-old male returns follow-up status post lumbar epidural steroid injections as well as right wrist carpometacarpal joint injection on his last visit. Patient reports that his back still doing fairly well but his right wrist is still significantly painful and is moved more proximal in the right wrist and it was on last visit. Patient reports is worse with using the wrist with any repetitive motions lifting bending twisting especially opening jars with his right hand and he is right-handed patient reports that sharp and stabbing in the right wrist rates a 10 on scale 10 is worse with the past week 7 on average 3 its least as a 7 today. Patient reports no motor loss but significant difficulty with pain patient with extension of the wrist as well as twisting motions. Patient reports it generally not awaken her from sleep at night and his back is doing fairly well not awaken her from sleep as well. Physical Exam: VS: Blood pressure is 124/74 pulse 53 respirations are 18 temperature 90.4 F height is 5 feet 7 inches weight is 221 pounds PE: PHYSICAL EXAMINATION: GENERAL: The patient is awake, alert, oriented, appropriate, very pleasant demeanor HEENT: Shows normocephalic, atraumatic. Extraocular movements are intact and symmetrical. NECK: Shows anterior throat supple without palpable lymphadenopathy noted. Swallow reflex symmetrical. CHEST: Shows normal on inspection. Breath sounds are clear bilaterally. HEART: Shows S1, S2 clear. No murmurs auscultated. ABDOMEN: Soft, nontender, nondistended, obese. No palpable organomegaly is noted. No rebound or guarding demonstrated. BACK: Shows spine grossly in the midline. Normal-appearing cervical lordotic curvature. There is slightly increased thoracic kyphosis, some minor flattening of the lumbar lordotic curvature. Lumbar paraspinous muscles show symmetrical on inspection, on palpation shows some moderate tenderness diffusely throughout the upper, middle and lower distribution of the paraspinous muscles bilaterally, but without specific trigger points, without radiation of pain. The patient has good rotational motion of the lumbar spine, both laterally as well as extension and flexion without significant difficulty. No tenderness over the spinous processes, sacrum or sacroiliac regions. EXTREMITIES: Lower extremities show deep tendon reflexes 1+ in the patellar and tendo calcaneus tendons. Motor exam is 4 on a scale of 5 with right dorsiflexion, extension, quadriceps and hamstring flexion and 5/5 on the left. Peripheral pulses are 1+ posterior tibial. No peripheral edema is noted bilaterally. Lower extremities are warm and dry to touch, equal in color and appearance. Patient's upper extremities show deep tendon reflexes 2+ in the bicep and tricep tendons are equal motor exam is strong with supervisor plate forming strength rated 4-5 on the right 5 out of 5 on the left patient's right wrist with significant tenderness more proximal than on previous exam at approximately the radial carpal joint on the medial aspect more than the lateral this is worse with extension and flexion of the wrist as well as with resistance. Left wrist shows full range of motion without difficulty or strength loss. SKIN: Shows warm and dry, good turgor. No edema. No sores, rashes or bruising throughout. Procedure: Procedure: Options were discussed with the patient. Patient will chart reviewed his his current medication regimen updated current review of systems updated today as well. We will proceed with a right radiocarpal joint injection with fluoroscopic guidance today risks were discussed including but not limited to bleeding infection possibility of intravascular injection and sequelae spread local anesthetic numbness side effects steroid medication exposure to fluoros copy as well as poor results regarding pain control. Patient understands wished to proceed. Return to clinic in approximately 2 weeks for follow-up was counseled as to return appointment activity level and side effects to be aware of. Medication Injected: Med Injected: Under sterile prep and drape using C-arm fluoroscopic guidance patient's right wrist was sterilely prepped and using a 25-gauge 1/2 inch needle under direct visualization the right radiocarpal joint was entered with out difficulty. 0.5 cc of contrast was injected showing good spread within the radiocarpal joint without sterilization or washout. At this time 1-1/2 cc of 0.25% bupivacaine and 40 mg Depo-Medrol was then injected in the joint needle was removed sterile bandage was applied. Patient tolerated the procedure well had no complications. Condition at Discharge: Condition at Discharge: Condition at discharge stable patient tolerated procedure well and had no complications CHRISTOPHER ESCOBEDO MD Feb 10, 2020 09:31
== END ==
LOC: PNCL 09:02
PROVIDERS: ATTEND Anesthesiology
DX: M19.031 Primary osteoarthritis, right wrist (principal); M51.16 Intervertebral disc disorders with radiculopathy, lumbar region; M47.896 Other spondylosis, lumbar region; I10 Essential (primary) hypertension; K21.9 Gastro-esophageal reflux disease without esophagitis; Z88.5 Allergy status to narcotic agent; Z79.82 Long term (current) use of aspirin; Z79.899 Other long term (current) drug therapy
CPT/HCPCS: 20605; 77002; J1030; J3490; Q9965; 20600

== ENCOUNTER → 2020-04-07 | Outpatient (CLI) | payer MEDICARE, OTHER ==
[~2020-04-07] MED LIST changes: -BUPIVACAINE MPF 0.25% 10 ML VIAL. ONE; -IOHEXOL 180 MG/ML 10 ML VIAL. ONE; +REGADENOSON 0.4 MG/5 ML DISP.SYRIN. IV ONE; -methylPREDNISolone ACETATE 40 MG/ML VIAL. ONE
--- NOTE | 2020-04-07 15:25 | RAD ---
MR#: [id number] Date of Study: 04/07/2020 Ordering Physician: MAME CASTRO, Referring Physician: SCOTT WINTERS Tech: HARESH Gallego APPROVED REPORT Test Type: Pharmacological Stress Nurse/Tech: Pam Woodson RN Test Indications: PVC's Cardiac History: arrythmia, x-smoker Medications: See Electronic Medical Record Medical History: See Electronic Medical Record Resting ECG: SB Resting Heart Rate: 48 bpm Resting Blood Pressure: 117/66mmHg Pretest Chest Pain: None Nurse/Tech Notes lungs CTA, S1S2 Consent: The procedure was explained to the patient in lay terms. Informed consent was witnessed. Mohan eout was entered into [employer]. History and Stress Test performed by HARESH Gallego Pharm. Details Pharmacologic stress testing was performed using 0.4mg per 5ml of regadenoson given intravenously ove r 7-10 seconds. Stress Symptoms No chest pain or symptoms. POST EXERCISE Reason for Termination: Infusion complete Max HR: 85 bpm Max Blood Pressure: 130/65mmHg Blood Pressure response to exercise: Normal blood pressure response during stress. Heart Rate response to exercise: normal response Chest Pain: No. Arrhythmia: No. ST Change: No. INTERPRETATION Stress EKG Conclusion: Baseline EKG showed sinus rhythm. No ischemic changes at peak stress. No arr hythmias. Imaging Protocol IMAGE PROTOCOL: Rest Tc-99m/stress Tc-99m 1 day Rest: Stress: Viability: Radiopharm.Tc99m QyfybfcvtUc20g Sestamibi [id number] 31mCi Duration 15min. 10min. Img Date 04/07/2020 04/07/2020 Inj-Img [id number]. 60min. Rest Admin Site:IV - Right AntecubitalAdministrator:HARESH Gallego Stress Admin Site: IV - Right AntecubitalAdministrator: ZOE Osullivan, ARRT (R)(N) STRESS DATA End Diast. Vol.72.0mlAv. Heart Rate62.0bpm End Syst. Vol.15.0mlCO Index BSA3.5L/min Myocardial Elus625.0gEject. Hxyiojil62.0% Stress Rates Pk. Fill Rate1.95EDV/secLVtime Pk. Fill 307.83msec Pk. Empty Rate4.47ESV/secLVtime Pk. Sfejm023.41msec 1/3 Pk. Fill0.48EDV/sec Stress Scores Regional WT0.00Summed WT2.00 Regional WM0.00Summed WM0.00 Study quality was fair. Left Ventricular size was Normal at Rest and Stress. Lung uptake was . Left Ventricular ejection fraction is 77%. The rest and stress images show normal perfusion, normal contraction and thickening. LV Perf. Quant 17 Seg. SSS1.00 17 Seg. SRS1.00 17 Seg. SDS1.00 Stress Defect Extent (% LAD)0.00Rest Defect Extent (% LAD)0.00Rev. Defect Extent (% LAD)0.00 Stress Defect Extent (% LCX) 10.00Rest Defect Extent (% LCX)0.00Rev. Defect Extent (% LCX)8.80 Stress Defect Extent (% RCA)0.00Rest Defect Extent (% RCA)0.00Rev. Defect Extent (% RCA)0.00 Stress Defect Extent (% JUNIE)1.70Rest Defect Extent (% JUNIE)0.00Rev. Defect Extent (% JUNIE)1.50 Conclusion 1. Regadenoson cardioisotope stress test did not show any evidence of ischemia or infarct. 2. Normal left ventricular systolic function with ejection fraction calculated at 77%. 3. Low risk for cardiac events. Signed by : Mame Castro, Electronically Approved : 04/07/2020 15:25:12
--- NOTE | 2020-04-07 15:27 | CARD ---
MR#: [id number] Date of Study: 04/07/2020 Ordering Physician: MAME NIEVES, Referring Physician: MAME NIEVES, Tech: Margaret Reaves PITO APPROVED REPORT EXAM: Two-dimensional and M-mode echocardiogram with Doppler and color Doppler. Other Information Quality : AverageHR: 47bpm Rhythm : Bradycardia INDICATION Abnormal ECG Screening for coronary disease 2D DIMENSIONS Left Atrium(2D)2.6 (1.6-4.0cm)IVSd0.7 (0.7-1.1cm) Aortic Root(2D)3.1 (2.0-3.7cm)LVDd3.7 (3.9-5.9cm) LVOT Diameter2.0 (1.8-2.4cm)PWd0.8 (0.7-1.1cm) LVDs3.3 (2.5-4.0cm)FS (%) 12.9 % SV17.0 ml Aortic Valve AoV Peak Raman.109.4cm/Dolores Peak GR.4.8mmHg LVOT Peak Raman.109.1cm/sAVA (VMAX)3.27cm2 Mitral Valve MV E Wtyyjuep22.5cm/sMV DECEL DDXT270sk MV A Clexmjrn77.8cm/sE/A Ratio0.6 MV A Rybyzubg190gk Pulmonary Valve PV Peak Fflzrrju03.3cm/s Pulmonary Vein S1 Zgxsjkzj72.7cm/sD2 Msxygdbw29.9cm/s PVa [id number] LEFT VENTRICLE The left ventricle is normal size. There is normal left ventricular wall thickness. Left ventricular systolic function is normal. The ejection fraction is 55-60%. There is normal LV segmental wall motio n. The left ventricular diastolic function is normal. No left ventricle thrombus noted on this study. There is no ventricular septal defect visualized. There is no left ventricular aneurysm. There is no mass noted in the left ventricle. RIGHT VENTRICLE The right ventricle is normal size. There is normal right ventricular wall thickness. The right ventr icular systolic function is normal. ATRIA The left atrium size is normal. The right atrium size is normal. The interatrial septum is intact wit h no evidence for an atrial septal defect or patent foramen ovale as noted on 2-D or Doppler imaging. AORTIC VALVE The aortic valve is normal in structure and function. No aortic regurgitation is present. There is no aortic valvular stenosis. There is no aortic valvular vegetation. MITRAL VALVE The mitral valve is normal in structure and function. There is no evidence of mitral valve prolapse. There is no mitral valve stenosis. There is no mitral valve regurgitation noted. TRICUSPID VALVE The tricuspid valve is normal in structure and function. There is no tricuspid valve regurgitation no checo. There is no tricuspid valve prolapse or vegetation. There is no tricuspid valve stenosis. GREAT VESSELS The aortic root is normal in size. The ascending aorta is normal in size. The pulmonary artery is nor mal. The IVC is normal in size and collapses >50% with inspiration. PERICARDIAL EFFUSION There is no pleural effusion. There is no evidence of significant pericardial effusion. Critical Notification Critical Value: No <Conclusion> Left ventricular systolic function is normal. The ejection fraction is 55-60%. There is normal LV segmental wall motion. There is no evidence of significant pericardial effusion. Signed by : Mame Nieves, Electronically Approved : 04/07/2020 15:27:15
== END ==
LOC: ECHO 08:46
PROVIDERS: ATTEND Internal Medicine Cardiovascular Disease
DX: I49.3 Ventricular premature depolarization (principal)
CPT/HCPCS: 78452; 93017; 93306; A9500; J2785

== ENCOUNTER → 2020-09-14 | Outpatient (CLI) | payer MEDICARE, OTHER ==
[~2020-09-14] MED LIST changes: +IOHEXOL 180 MG/ML 10 ML VIAL. ONE; -REGADENOSON 0.4 MG/5 ML DISP.SYRIN. IV ONE; +methylPREDNISolone ACETATE 40 MG/ML VIAL. ONE; +methylPREDNISolone ACETATE 80 MG/ML VIAL. ONE
--- NOTE | 2020-09-14 12:57 | PDOC ---
Progress Note - Pain Clinic Date of Service: DOS: DATE: 09/14/20 TIME: 12:52 Diagnosis: Dx: Lumbar radiculopathy with lumbar degenerative disease and lumbar spondylosis History or Present Illness: HPI: 75-year-old male returns for follow-up status post lumbar epidural steroid injections last seen January 2020. Patient reports did very well about 90% improvement after the injection but the pain is returning now over the past month or so in the low back and in the bilateral lower extremities worse on the right than the left posterior gluteus posterior lateral thighs lateral anterior thigh medial lower leg especially on the right patient reports is worse with walking standing changing positions rated as a 10 on scale 10 is worse over the past week 8 on average 5 its least is a 7 today patient was aching and sharp tingling and radiating patient reports initially was doing much better with distance walking doing household activities travel with greater ease and comfort sleeping better at night is beginning to awaken from sleep however has multiple about every 5 hours. Patient reports no new motor or sensory deficits no new bowel or bladder incontinence or other complaints. Physical Exam: VS: Blood pressure is 147/80 pulse 59 respirations 18 temperature 98.8 F height is 5 feet 7 inches weight is 222 pounds PE: PHYSICAL EXAMINATION: GENERAL: The patient is awake, alert, oriented, appropriate, very pleasant demeanor HEENT: Shows normocephalic, atraumatic. Extraocular movements are intact and symmetrical. Oral cavity: Mucous membranes moist and pink. NECK: Shows anterior throat supple without palpable lymphadenopathy noted. Swallow reflex symmetrical. CHEST: Shows normal on inspection. Breath sounds are clear bilaterally, no rales or rhonchi. HEART: Shows S1, S2 clear. No murmurs auscultated. ABDOMEN: Soft, nontender, nondistended, obese. No palpable organomegaly is noted. No rebound or guarding demonstrated. BACK: Shows spine grossly in the midline. Normal-appearing cervical lordotic curvature. There is slightly increased thoracic kyphosis, some minor flattening of the lumbar lordotic curvature. Lumbar paraspinous muscles show symmetrical on inspection, on palpation shows some moderate tenderness diffusely throughout the upper, middle and lower distribution of the paraspinous muscles without specific trigger points, without radiation of pain. The patient has good rotational motion of the lumbar spine, both laterally as well as extension and flexion without significant difficulty. EXTREMITIES: Lower extremities show deep tendon reflexes 1+ in the patellar and tendo calcaneus tendons. Motor exam is 4 on a scale of 5 with right dorsiflexion, extension, quadriceps and hamstring flexion and 5/5 on the left. Peripheral pulses are 1+ posterior tibial. No peripheral edema is noted bilaterally. Lower extremities are warm and dry. SKIN: Shows warm and dry, good turgor. No edema. No sores, rashes or bruising throughout. Procedure: Procedure: Options were discussed with the patient. Patient chart reviews her current medication regimen updated current review systems updated today as well. We will proceed with a first in a series lumbar epidural steroid ejections today with fluoroscopic guidance. Risks were discussed including but not limited to: Bleeding, infection, possibility of epidural hematoma and subsequent neurological compromise, dural puncture, headaches, spinal cord and/or nerve damage, side effects of steroid medication, and poor results regarding pain control. Patient understands and wished to proceed. Patient will return to the clinic in approximate 2 weeks for follow-up, was counseled as to return appointment activity level and side effects to be aware of. Medication Injected: Med Injected: Procedure is lumbar epidural steroid injection under local anesthetic using sterile prep and drape at the L4-5 level using C-arm fluoroscopic guidance in both AP and lateral views medications injected is 120 mg Depo-Medrol +10mL preservative-free normal saline and 2 mL contrast- condition at discharge is stable patient tolerated procedure well had no complications. Condition at Discharge: Condition at Discharge: Condition at discharge stable, patient already procedure well and had no complications. CHRISTOPHER ESCOBEDO MD September 14, 2020 12:57
--- NOTE | 2020-09-14 12:57 | PDOC4 ---
PROCEDURE Procedure Patient was consented for lumbar epidural steroid injection. Risks were dis cussed including but not limited to: Bleeding, infection, possibility of epidural hematoma and subsequent neurological compromise, dural puncture, headaches, spinal cord and/or nerve damage, side effects of steroid medication, and poor results regarding pain control. Patient understands and wished to proceed. Procedure is lumbar epidural steroid injection under local anesthetic using sterile prep and drape at the L4-5 level using C-arm fluoroscopic guidance in both AP and lateral views medications injected is 120 mg Depo-Medrol +10mL preservative-free normal saline and 2 mL contrast- condition at discharge is stable patient tolerated procedure well had no complications. CHRISTOPHER ESCOBEDO MD September 14, 2020 12:57
== END | disposition home or self-care (01) ==
LOC: PNCL 11:00
PROVIDERS: ATTEND Anesthesiology
DX: M51.16 Intervertebral disc disorders with radiculopathy, lumbar region (principal); M47.26 Other spondylosis with radiculopathy, lumbar region; I10 Essential (primary) hypertension; G47.30 Sleep apnea, unspecified; K21.9 Gastro-esophageal reflux disease without esophagitis; M19.90 Unspecified osteoarthritis, unspecified site; Z90.49 Acquired absence of other specified parts of digestive tract; Z98.890 Other specified postprocedural states; Z79.899 Other long term (current) drug therapy; Z87.891 Personal history of nicotine dependence; Z79.82 Long term (current) use of aspirin; Z72.89 Other problems related to lifestyle; Z88.5 Allergy status to narcotic agent
CPT/HCPCS: 62323; J1030; J1040; Q9965

== ENCOUNTER → 2020-09-29 | Outpatient (CLI) | payer MEDICARE, OTHER ==
--- NOTE | 2020-09-29 09:26 | PDOC ---
Progress Note - Pain Clinic Date of Service: DOS: DATE: 09/29/20 TIME: 09:23 Diagnosis: Dx: Lumbar radiculopathy with lumbar degenerative disc disease and lumbar spondylosis Right wrist joint pain with osteoarthritis History or Present Illness: HPI: 75-year-old male returns for follow-up status post lumbar epidural steroid injection x1. Patient reports about 80 to 90% improvement over the first week still doing better but the pain is returning slightly in the low back and right lower extremity mostly the posterior gluteus lateral thigh anterior thigh medial thigh on the right to the ankle patient reports is a 10 on scale 10 is worse over the past week 8 on average 5 its least is a 7 today patient report is aching and sharp tingling stabbing in the back constant at times with standing on and off in intensity however patient reports that it is beginning to awaken from sleep once or twice a night but the first week was doing much better is doing distance walking sleeping better doing household activities travel with greater ease and comfort as well. Patient reports no new motor or sensory deficits no new bowel bladder incontinence or other complaints. Physical Exam: VS: Blood pressure is 125/71 pulse 60 respirations 18 temperature 98.1 F height 70 inches weight is 220 pounds PE: PHYSICAL EXAMINATION: GENERAL: The patient is awake, alert, oriented, appropriate, very pleasant demeanor HEENT: Shows normocephalic, atraumatic. Extraocular movements are intact and symmetrical. NECK: Shows anterior throat supple without palpable lymphadenopathy noted. Swallow reflex symmetrical. CHEST: Shows normal on inspection. Breath sounds are clear bilaterally. HEART: Shows S1, S2 clear. ABDOMEN: Soft, nontender, nondistended, obese. No palpable organomegaly is noted. No rebound or guarding demonstrated. BACK: Shows spine grossly in the midline. Normal-appearing cervical lordotic curvature. There is slightly increased thoracic kyphosis, some minor flattening of the lumbar lordotic curvature. Lumbar paraspinous muscles show symmetrical on inspection, on palpation shows some moderate tenderness diffusely throughout the upper, middle and lower distribution of the paraspinous muscles without specific trigger points, without radiation of pain. The patient has good rotational motion of the lumbar spine, both laterally as well as extension and flexion without significant difficulty. No tenderness over the spinous processes, sacrum or sacroiliac regions. EXTREMITIES: Lower extremities show deep tendon reflexes 1+ in the patellar and tendo calcaneus tendons. Motor exam is 4 on a scale of 5 with right dorsiflexion, extension, quadriceps and hamstring flexion and 5/5 on the left. Peripheral pulses are 1+ posterior tibial. No peripheral edema is noted bilaterally. Lower extremities are warm and dry to touch, equal in color and appearance. SKIN: Shows warm and dry, good turgor. No edema. No sores, rashes or bruising throughout. Procedure: Procedure: Options discussed with patient. Patient's old chart was reviewed his current medication regimen updated current review of systems updated today as well. We will proceed with a second in the series lumbar epidural steroid injection today with fluoroscopic guidance. Risks were discussed including but not limited to: Bleeding, infection, possibility of epidural hematoma and subsequent neur ological compromise, dural puncture, headaches, spinal cord and/or nerve damage, side effects of steroid medication, and poor results regarding pain control. Patient understands and wished to proceed. Patient will return to the clinic in approximate 2 weeks for follow-up, was counseled as return appointment activity level and side effects to be aware of. Medication Injected: Med Injected: Procedure is lumbar epidural steroid injection under local anesthetic using sterile prep and drape at the L4-5 level using C-arm fluoroscopic guidance in both AP and lateral views medications injected is 120 mg Depo-Medrol +10mL preservative-free normal saline and 2 mL contrast- condition at discharge is stable patient tolerated procedure well had no complications. Condition at Discharge: Condition at Discharge: Condition at discharge is stable, patient tolerated the procedure well and had no complications. CHRISTOPHER ESCOBEDO MD Sep 29, 2020 09:26
--- NOTE | 2020-09-29 09:27 | PDOC4 ---
PROCEDURE Procedure Patient was consented for lumbar epidural steroid injection. risks were dis cussed including but not limited to: Bleeding, infection, possibility of epidural hematoma and subsequent neurological compromise, dural puncture, headaches, spinal cord and/or nerve damage, side effects of steroid medication, and poor results regarding pain control. Patient understands and wished to proceed. Procedure is lumbar epidural steroid injection under local anesthetic using sterile prep and drape at the L4-5 level using C-arm fluoroscopic guidance in both AP and lateral views medications injected is 120 mg Depo-Medrol +10mL preservative-free normal saline and 2 mL contrast- condition at discharge is stable patient tolerated procedure well had no complications. CHRISTOPHER ESCOBEDO MD Sep 29, 2020 09:27
== END ==
LOC: PNCL 08:47
PROVIDERS: ATTEND Anesthesiology
DX: M51.16 Intervertebral disc disorders with radiculopathy, lumbar region (principal); M47.26 Other spondylosis with radiculopathy, lumbar region; M19.90 Unspecified osteoarthritis, unspecified site
CPT/HCPCS: 62323; J1030; J1040; Q9965

== ENCOUNTER → 2020-10-13 | Outpatient (CLI) | payer MEDICARE, OTHER ==
--- NOTE | 2020-10-13 10:42 | PDOC ---
Progress Note - Pain Clinic Date of Service: DOS: DATE: 10/13/20 TIME: 10:39 Diagnosis: Dx: Lumbar radiculopathy lumbar degenerative disease and lumbar spondylosis History or Present Illness: HPI: 75-year-old male returns for follow-up status post lumbar epidural 2 injections x 2. Patient reports about 50% improvement overall low back and right lower extremity pain still significant pain in the posterior gluteus lateral thigh anterior thigh medial thigh medial lower leg and calf on the right side with walking standing better with sitting or laying down generally does not awaken him from sleep at night patient reports his pain is a 9 on scale [address] week 7 on average for its least is a 4 today patient describes as tingling and burning in the back radiating shooting sometimes aching and sharp in the leg as well on the right side only. Patient reports no new motor or sensory deficits after last injection was doing much better with distance walking doing household activities travel with greater ease and comfort as well as sleeping better. Physical Exam: VS: Blood pressure is 138/76 pulse 55 respirations 18 temperature 98.6 F height 5 feet 7 inches weight is 221 pounds PE: PHYSICAL EXAMINATION: GENERAL: The patient is awake, alert, oriented, appropriate, very pleasant in demeanor HEENT: Shows normocephalic, atraumatic. Extraocular movements are intact and symmetrical. Oral cavity: Mucous membranes moist and pink. NECK: Shows anterior throat supple without palpable lymphadenopathy noted. Swallow reflex symmetrical. CHEST: Shows normal on inspection. Breath sounds are clear bilaterally. HEART: Shows S1, S2 clear. No murmurs auscultated. ABDOMEN: Soft, nontender, nondistended, obese. BACK: Shows spine grossly in the midline. Normal-appearing cervical lordotic curvature. There is slightly increased thoracic kyphosis, some minor flattening of the lumbar lordotic curvature. Lumbar paraspinous muscles show symmetrical on inspection, on palpation shows some moderate tenderness diffusely throughout the upper, middle and lower distribution of the paraspinous muscles without specific trigger points, without radiation of pain. The patient has good rotational motion of the lumbar spine, both laterally as well as extension and flexion without significant difficulty. EXTREMITIES: Lower extremities show deep tendon reflexes 1+ in the patellar and tendo calcaneus tendons. Motor exam is 4 on a scale of 5 with right dorsiflexion, extension, quadriceps and hamstring flexion and 5/5 on the left. Peripheral pulses are 1 posterior tibial. No peripheral edema is noted bilaterally. Lower extremities are warm and dry. SKIN: Shows warm and dry, good turgor. No edema. No sores, rashes or bruising throughout. Procedure: Procedure: Options discussed with the patient. Patient's old chart was reviewed his current medication regimen updated current review of systems updated today as well. We will proceed with third in the series lumbar epidural steroid injection today with fluoroscopic guidance. Risks were discussed including but not limited to: Bleeding, infection, possibility of epidural hematoma and subsequent neurological compromise, dural puncture, headaches, spinal cord and/or nerve damage, side effects of steroid medication, and poor results regarding pain control. Patient understands and wished to proceed. Patient return to the clinic in proxy to follow-up, was counseled as return appointment, activity level, and side effects to be aware of. Medication Injected: Med Injected: Procedure is lumbar epidural steroid injection under local anesthetic using sterile prep and drape at the L4-5 level using C-arm fluoroscopic guidance in both AP and lateral views medications injected is 120 mg Depo-Medrol +10mL preservative-free normal saline and 2 mL contrast- condition at discharge is st able patient tolerated procedure well had no complications. Condition at Discharge: Condition at Discharge: Condition at discharge stable, patient already procedure well and had no complications. CHRISTOPHER ESCOBEDO MD Oct 13, 2020 10:42
--- NOTE | 2020-10-13 10:43 | PDOC4 ---
PROCEDURE Procedure Patient was consented for lumbar epidural steroid injection. Risks were dis cussed including but not limited to: Bleeding, infection, possibility of epidural hematoma and subsequent neurological compromise, dural puncture, headaches, spinal cord and/or nerve damage, side effects of steroid medication, and poor results regarding pain control. Patient understands and wished to proceed. Procedure is lumbar epidural steroid injection under local anesthetic using sterile prep and drape at the L4-5 level using C-arm fluoroscopic guidance in both AP and lateral views medications injected is 120 mg Depo-Medrol +10mL preservative-free normal saline and 2 mL contrast- condition at discharge is stable patient tolerated procedure well had no complications. CHRISTOPHER ESCOBEDO MD Oct 13, 2020 10:43
== END | disposition home or self-care (01) ==
LOC: PNCL 09:07
PROVIDERS: ATTEND Anesthesiology
DX: M51.16 Intervertebral disc disorders with radiculopathy, lumbar region (principal); M47.26 Other spondylosis with radiculopathy, lumbar region; I10 Essential (primary) hypertension; G47.30 Sleep apnea, unspecified; K21.9 Gastro-esophageal reflux disease without esophagitis; M19.90 Unspecified osteoarthritis, unspecified site; Z90.49 Acquired absence of other specified parts of digestive tract; Z98.890 Other specified postprocedural states; Z79.899 Other long term (current) drug therapy; Z79.82 Long term (current) use of aspirin; Z88.5 Allergy status to narcotic agent; Z88.6 Allergy status to analgesic agent; Z82.49 Family history of ischemic heart disease and other diseases of the circulatory system
CPT/HCPCS: 62323; J1030; J1040; Q9965

== ENCOUNTER → 2021-03-17 | Outpatient (CLI) | payer MEDICARE, OTHER ==
[~2021-03-17] MED LIST changes: -methylPREDNISolone ACETATE 80 MG/ML VIAL. ONE
--- NOTE | 2021-03-17 08:05 | PDOC ---
Progress Note - Pain Clinic Date of Service: DOS: DATE: 03/17/21 TIME: 08:02 Diagnosis: Dx: Lumbar radiculopathy with lumbar degenerative disease and lumbar spondylosis Right wrist joint pain with osteoarthritis History or Present Illness: HPI: Visible with [id number] male returns for follow-up last seen October 13, 2020 patient did very well after an epidural injection with about 75% improve ment of pain returning now over the past few weeks into the right lower extremity posterior gluteus posterior thigh lateral thigh anterior thigh medial thigh medial lower leg into the foot patient reports its much more pain than it was previously patient reports her back is doing fairly well but the pain is radiating to the leg is becoming more noticeable patient reports it was much better for about 2 months increase activity distance walking doing household activities work activities travel with greater ease and comfort driving with much greater ease and sleeping better patient reports still better with sitting or laying down does not awaken him from sleep at night patient reports pain is a 9 on scale 10 is worse over the past week 7 on average 6 its least is a 6 today patient reports cramping and sharp in the leg worse with walking standing and ambulating patient is using a cane in his right hand as well with ambulating and has it with him today. Patient reports occasional pain on the left side in the posterior gluteus and thigh which is new but mostly on the right as it was previously. Patient reports no bowel or bladder incontinence. Physical Exam: VS: Blood pressure is 130/76 pulse 56 respirations are 18 temperature is 98.2 F height is 5 foot 7 inches weight is 222 pounds PE: PHYSICAL EXAMINATION: GENERAL: The patient is awake, alert, oriented, appropriate, very pleasant in demeanor HEENT: Shows normocephalic, atraumatic. Extraocular movements are intact and symmetrical. Oral cavity: Mucous membranes moist and pink. NECK: Shows anterior throat supple without palpable lymphadenopathy noted. Swallow reflex symmetrical. CHEST: Shows normal on inspection. Breath sounds are clear bilaterally. HEART: Shows S1, S2 clear. No murmurs auscultated. ABDOMEN: Soft, nontender, nondistended. No palpable organomegaly is noted. No rebound or guarding demonstrated. BACK: Shows spine grossly in the midline. Normal-appearing cervical lordotic curvature. There is increased thoracic kyphosis, flattening of the lumbar lordotic curvature, with well-healed midline surgical scar noted at the sacrum. Lumbar paraspinous muscles show symmetrical on inspection, on palpation shows some moderate tenderness diffusely throughout the upper, middle and lower distribution of the paraspinous muscles without specific trigger points, without radiation of pain. The patient has good rotational motion of the lumbar spine, both laterally as well as extension and flexion without significant difficulty. No tenderness over the spinous processes, sacrum or sacroiliac regions. EXTREMITIES: Lower extremities show deep tendon reflexes 1 in the patellar and tendo calcaneus tendons. Motor exam is 4 on a scale of 5 with right dorsiflexion, extension, quadriceps and hamstring flexion and 5/5 on the left. Peripheral pulses are 1+ posterior tibial. No peripheral edema is noted bilaterally. Lower extremities are warm and dry to touch, equal in color and appearance. SKIN: Shows warm and dry, good turgor. No edema. No sores, rashes or bruising throughout. Procedure: Procedure: Options were discussed with the patient. Patient chart reviews his current medication regimen updated current review of systems updated today as well. We will proceed with a lumbar epidural steroid injection today with fluoroscopic guidance. Risks were discussed including but not limited to: Bleeding, infection, possibility of epidural hematoma and subsequent neurological compromise, dural puncture, headaches, spinal cord and/or nerve damage, side effects of steroid medication, and poor results regarding pain control. Patient understands and wished to proceed. Patient return to clinic in approximate 2 weeks for follow-up, was counseled return appointment, activity level, and side effect to be aware of. Medication Injected: Med Injected: Procedure is lumbar epidural steroid injection under local anesthetic using sterile prep and drape at the L4-5 level using C-arm fluoroscopic guidance in both AP and lateral views medications injected is 120 mg Depo-Medrol +10mL preservative-free normal saline and 2 mL contrast- condition at discharge is stable patient tolerated procedure well had no complications. Condition at Discharge: Condition at Discharge: Condition at discharge is stable, patient tolerated procedure well and had no complications. CHRISTOPHER ESCOBEDO MD Mar 17, 2021 08:05
--- NOTE | 2021-03-17 08:06 | PDOC4 ---
Procedure Note: ICD 10 Code: ICD 10 Code: M54.16 M51.36 7.816 Procedure Note: Patient was consented for lumbar epidural steroid injection with fluoroscopic guidance. Risks were discussed including but not limited to: Bleeding, infection, possibility of epidural hematoma and subsequent neurological compromise, dural puncture, headaches, spinal cord and/or nerve damage, side effects of steroid medication, and poor results regarding pain control. Patient understands and wished to proceed. Procedure is lumbar epidural steroid injection under local anesthetic using st erile prep and drape at the L4-5 level using C-arm fluoroscopic guidance in both AP and lateral views medications injected is 120 mg Depo-Medrol +10mL preservative-free normal saline and 2 mL contrast- condition at discharge is stable patient tolerated procedure well had no complications. CHRISTOPHER ESCOBEDO MD Mar 17, 2021 08:06
== END | disposition home or self-care (01) ==
LOC: PNCL 07:29
PROVIDERS: ATTEND Anesthesiology
DX: M51.16 Intervertebral disc disorders with radiculopathy, lumbar region (principal); M47.26 Other spondylosis with radiculopathy, lumbar region; G89.29 Other chronic pain; M25.541 Pain in joints of right hand; M19.031 Primary osteoarthritis, right wrist; I10 Essential (primary) hypertension; M19.90 Unspecified osteoarthritis, unspecified site; G47.30 Sleep apnea, unspecified; F17.210 Nicotine dependence, cigarettes, uncomplicated; Z90.49 Acquired absence of other specified parts of digestive tract; Z98.890 Other specified postprocedural states; Z79.899 Other long term (current) drug therapy; Z96.652 Presence of left artificial knee joint
CPT/HCPCS: 62323; J1030; Q9965

== ENCOUNTER → 2021-03-31 | Outpatient (CLI) | payer MEDICARE, OTHER ==
[~2021-03-31] MED LIST changes: +methylPREDNISolone ACETATE 80 MG/ML VIAL. ONE
--- NOTE | 2021-03-31 08:18 | PDOC4 ---
Procedure Note: ICD 10 Code: ICD 10 Code: M54.16 M51.36 7.816 Procedure Note: Patient was consented for lumbar epidural steroid injection with fluoroscopic guidance. Risks were discussed including but not limited to: Bleeding, infection, possibility of epidural hematoma and subsequent neurological compromise, dural puncture, headaches, spinal cord and/or nerve damage, side effects of steroid medication, and poor results regarding pain control. Patient understands and wished to proceed. Procedure is lumbar epidural steroid injection under local anesthetic using st erile prep and drape at the L4-5 level using C-arm fluoroscopic guidance in both AP and lateral views medications injected is 120 mg Depo-Medrol +10mL preservative-free normal saline and 2 mL contrast- condition at discharge is stable patient tolerated procedure well had no complications. CHRISTOPHER ESCOBEDO MD Mar 31, 2021 08:18
--- NOTE | 2021-03-31 08:18 | PDOC ---
Progress Note - Pain Clinic Date of Service: DOS: DATE: 03/31/21 TIME: 08:15 Diagnosis: Dx: Lumbar radiculopathy with lumbar degenerative disease and lumbar spondylosis History or Present Illness: HPI: 75-year-old male returns for follow-up status post lumbar epidural steroid injection x1. Patient reports about 90% improvement and still helping but the pain is changed now and is in the left lower extremity were primarily was only in the right lower extremity previously patient reports at 7 3 on scale 10 is worse over the past week to an average 1 its least it is a 2 today rating the posterior aspect of the left posterior gluteus lateral thigh anterior thigh medial thigh with aching cramping on and off intensity. Patient reports no bowel or bladder incontinence worse with walking standing but is doing much better with the right leg with distance walking doing household activities and try with greater ease as well. Patient reports the left-sided pain began about 1 week ago without any specific injury or accident. Physical Exam: VS: Blood pressure is 139/75 pulse 52 respirations are 18 temperature is 98.2 F height is 5 foot 7 inches weight is 220 pounds PE: PHYSICAL EXAMINATION: GENERAL: The patient is awake, alert, oriented, appropriate, very pleasant in demeanor HEENT: Shows normocephalic, atraumatic. Extraocular movements are intact and symmetrical. Oral cavity: Mucous membranes moist and pink. NECK: Shows anterior throat supple without palpable lymphadenopathy noted. Swallow reflex symmetrical. CHEST: Shows normal on inspection. Breath sounds are clear bilaterally, distant but no rales. HEART: Shows S1, S2 clear. No murmurs auscultated. ABDOMEN: Soft, nontender, nondistended, obese. No palpable organomegaly is noted. BACK: Shows spine grossly in the midline. Normal-appearing cervical lordotic curvature. There is increased thoracic kyphosis, some flattening of the lumbar lordotic curvature with well-healed midline surgical scar noted. Lumbar paraspinous muscles show symmetrical on inspection, on palpation shows some moderate tenderness diffusely throughout the upper, middle and lower distribution of the paraspinous muscles without specific trigger points, without radiation of pain. The patient has good rotational motion of the lumbar spine, both laterally as well as extension and flexion without significant difficulty. No tenderness over the spinous processes, sacrum or sacroiliac regions. EXTREMITIES: Lower extremities show deep tendon reflexes 1+ in the patellar and tendo calcaneus tendons. Motor exam is full on a scale of 5 with right dorsiflexion, extension, quadriceps and hamstring flexion and 5/5 on the left. Peripheral pulses are 1+ posterior tibial. No peripheral edema is noted bilaterally. Lower extremities are warm and dry. SKIN: Shows warm and dry, good turgor. No edema. No sores, rashes or bruising throughout. Procedure: Procedure: Options were discussed with the patient. Patient's old chart was reviewed as hi s current medication regimen updated current review of systems updated today as well. We will proceed with a lumbar epidural steroid injection today with fluoroscopic guidance. Risks were discussed including but not limited to: Bleeding, infection, possibility of epidural hematoma and subsequent neurological compromise, dural puncture, headaches, spinal cord and/or nerve damage, side effects of steroid medication, and poor results regarding pain control. Patient understands and wished to proceed. Patient will return to the clinic in approximate 2 weeks for follow-up, was counseled as to return appointment, activity level, and side effect to be aware of. Medication Injected: Med Injected: Procedure is lumbar epidural steroid injection under local anesthetic using sterile prep and drape at the L4-5 level using C-arm fluoroscopic guidance in both AP and lateral views medications injected is 120 mg Depo-Medrol +10mL preservative-free normal saline and 2 mL contrast- condition at discharge is stable patient tolerated procedure well had no complications. Condition at Discharge: Condition at Discharge: Condition at discharge is stable, patient tolerated the procedure well and had no complications. CHRISTOPHER ESCOBEDO MD Mar 31, 2021 08:18
== END | disposition home or self-care (01) ==
LOC: PNCL 07:51
PROVIDERS: ATTEND Anesthesiology
DX: M51.16 Intervertebral disc disorders with radiculopathy, lumbar region (principal); M47.26 Other spondylosis with radiculopathy, lumbar region; I10 Essential (primary) hypertension; G47.30 Sleep apnea, unspecified; K21.9 Gastro-esophageal reflux disease without esophagitis; M19.90 Unspecified osteoarthritis, unspecified site; Z90.49 Acquired absence of other specified parts of digestive tract; Z98.890 Other specified postprocedural states; Z79.899 Other long term (current) drug therapy; Z72.89 Other problems related to lifestyle; Z88.5 Allergy status to narcotic agent; Z88.8 Allergy status to other drugs, medicaments and biological substances; Z88.6 Allergy status to analgesic agent
CPT/HCPCS: 62323; J1030; J1040; Q9965

== ENCOUNTER → 2021-05-30 | Outpatient (CLI) | payer MEDICARE, OTHER ==
[~2021-05-30] MED LIST changes: +METO50TA6 PO; -methylPREDNISolone ACETATE 40 MG/ML VIAL. ONE
--- NOTE | 2021-05-30 08:48 | PDOC ---
Progress Note - Pain Clinic Date of Service: DOS: DATE: 05/30/21 TIME: 08:44 Diagnosis: Dx: Lumbar radiculopathy with lumbar degenerative disc disease and lumbar spondylosis with lumbar postlaminectomy syndrome History or Present Illness: HPI: 75-year-old male returns for follow-up status post lumbar epidural steroid injection 03/31/2021 patient did very well but 95% improvement for almost 2 months patient reports pain began to return about 3 days ago when he was at his son's house and stumbled but did not completely fall and has had pain in the low back and the right hip since that time rating the posterior gluteus lateral thigh anterior thigh medial thigh becoming much more tender with standing and weightbearing patient is using his cane today is walking with a very noticeable limp favoring the right lower extremity patient reports prior to that he was doing much better increased distance walking doing household activities travel with greater ease and comfort drove home from [place] after his grandsons wedding without significant difficulty patient reports is better with sitting or lying down currently and over the past few days the pain is becoming more noticeable in the leg itself as well as the right back patient reports a 10 on scale 10 is worst over the past week 3 on average 1 its least is a 3 today describes as sharp and shooting in the leg stabbing aching in the back dull and constant in the back as well patient reports no bowel or bladder incontinence. Patient also reports the right wrist is beginning to hurt having some significant pain with repetitive motions and weightbearing on the right wrist which has been previously diagnosed with osteoarthritis. We discussed this and will have him at this point treat with ibuprofen and acetaminophen on a regular basis for the next week to see if this may decrease the wrist pain itself. Physical Exam: VS: Blood pressure is 123/70 pulse 61 respirations 18 temperature 98.6 F height is 5 foot 7 inches weight 220 pounds. PE: PHYSICAL EXAMINATION: GENERAL: The patient is awake, alert, oriented, appropriate, very pleasant in demeanor HEENT: Shows normocephalic, atraumatic. Extraocular movements are intact and symmetrical. Oral cavity: Mucous membranes moist and pink. NECK: Shows anterior throat supple without palpable lymphadenopathy noted. Swallow reflex symmetrical. CHEST: Shows normal on inspection. Breath sounds are clear bilaterally, distant but no rales or rhonchi. HEART: Shows S1, S2 clear. No murmurs auscultated. ABDOMEN: Soft, nontender, nondistended. No palpable organomegaly is noted. BACK: Shows spine grossly in the midline. Normal-appearing cervical lordotic curvature. There is increased thoracic kyphosis, some flattening of the lumbar lordotic curvature. Lumbar paraspinous muscles show symmetrical on inspection, on palpation shows some moderate tenderness diffusely throughout the upper, middle and lower distribution of the paraspinous muscles, but without specific trigger points, without radiation of pain. The patient has good rotational motion of the lumbar spine, both laterally as well as extension and flexion without significant difficulty. No tenderness over the spinous processes, sacrum or sacroiliac regions. EXTREMITIES: Lower extremities show deep tendon reflexes 1 in the patellar and tendo calcaneus tendons. Motor exam is 4 on a scale of 5 with right dorsiflexion, extension, quadriceps and hamstring flexion and 5/5 on the left. Peripheral pulses are 1+ posterior tibial. No peripheral edema is noted bilaterally. Lower extremities are warm and dry. SKIN: Shows warm and dry, good turgor. No edema. No sores, rashes or bruising throughout. Procedure: Procedure: Options discussed with the patient. Patient's old chart was viewed as his current medication regimen updated Rosanna systems updated today as well. We will proceed with a lumbar epidural steroid injection today with fluoroscopic guidance. Risks were discussed including but not limited to: Bleeding, infection, possibility of epidural hematoma and subsequent neurological compromise, dural puncture, headaches, spinal cord and/or nerve damage, side effects of steroid medication, and poor results regarding pain control. Patient understands and wished to proceed. Patient return to clinic in approximate 2 weeks for follow-up, was counseled as return appointment, activity level, and side effects to be aware of. Medication Injected: Med Injected: Procedure is lumbar epidural steroid injection under local anesthetic using sterile prep and drape at the L4-5 level using C-arm fluoroscopic guidance in both AP and lateral views medications injected is 120 mg Depo-Medrol +10mL preservative-free normal saline and 2 mL contrast- condition at discharge is stable patient tolerated procedure well had no complications. Condition at Discharge: Condition at Discharge: Condition at discharge stable, paced tolerated procedure well and had no complications. CHRISTOPHER ESCOBEDO MD May 30, 2021 08:48
--- NOTE | 2021-05-30 08:49 | PDOC4 ---
Procedure Note: ICD 10 Code: ICD 10 Code: M54.16 M51.36 7.816 M 96.1 Procedure Note: Patient was consented for lumbar epidural steroid injection with fluoroscopic guidance. Risks were discussed including but not limited to: Bleeding, infection, possibility of epidural hematoma and subsequent neurological compromi se, dural puncture, headaches, spinal cord and/or nerve damage, side effects of steroid medication, and poor results regarding pain control. Patient understands and wished to proceed. Procedure is lumbar epidural steroid injection under local anesthetic using sterile prep and drape at the L4-5 level using C-arm fluoroscopic guidance in both AP and lateral views medications injected is 120 mg Depo-Medrol +10mL preservative-free normal saline and 2 mL contrast- condition at discharge is stable patient tolerated procedure well had no complications. CHRISTOPHER ESCOBEDO MD May 30, 2021 08:48
== END | disposition home or self-care (01) ==
LOC: PNCL 07:47
PROVIDERS: ATTEND Anesthesiology
DX: M51.16 Intervertebral disc disorders with radiculopathy, lumbar region (principal); M47.26 Other spondylosis with radiculopathy, lumbar region; M96.1 Postlaminectomy syndrome, not elsewhere classified; I10 Essential (primary) hypertension; G47.30 Sleep apnea, unspecified; K21.9 Gastro-esophageal reflux disease without esophagitis; M19.90 Unspecified osteoarthritis, unspecified site; Z90.49 Acquired absence of other specified parts of digestive tract; Z79.82 Long term (current) use of aspirin; Z79.899 Other long term (current) drug therapy; Z98.890 Other specified postprocedural states; Z88.5 Allergy status to narcotic agent; Z88.6 Allergy status to analgesic agent; Z72.89 Other problems related to lifestyle
CPT/HCPCS: 62323; J1040; Q9965

== ENCOUNTER 2021-07-16 14:42 | Emergency (ER) | payer MEDICARE, OTHER ==
[~2021-07-16] VITALS: Ht 170.2 cm; Wt 103.6 kg
[~2021-07-16 14:42] MED LIST changes: -IOHEXOL 180 MG/ML 10 ML VIAL. ONE; -methylPREDNISolone ACETATE 80 MG/ML VIAL. ONE
--- NOTE | 2021-07-16 15:14 | PHYS DOC ---
Past Medical History Past Medical History: GERD Additional Past Medical Histor: PVC'S, POLIO A CHILD,PVC,GERD, Past Surgical History: Cholecystectomy, Knee Replacement Additional Past Surgical Histo: MUSCLE TRANSPLANT R THIGH D/T POLIO, L KNEE REPL., HERNIA Smoking Status: Never Smoker Alcohol Use: Occasionally Drug Use: None General Adult EDM: Chief Complaint: SHORTNESS OF BREATH HPI: HPI: Patient is a 76 year old male who presents with palpitations and shortness of breath as he was driving. He states that he felt his pulse on his wrist and it seemed to be skipping beats. He states he does have a history of PVCs. He denies chest pain, abdominal pain, nausea, vomiting, diarrhea, fever, cough, diaphoresis, dizziness, headache, syncope, vision change, numbness tingling, focal weakness. He has a history of PVCs, polio as a child, GERD, hypertension, high cholesterol, cholecystectomy, hernia, knee replacement, thigh muscle surgery due to polio. Review of Systems: Review of Systems: Constitutional: Denies fever or chills. [] Eyes: Denies change in visual acuity. [] HENT: Denies nasal congestion or sore throat. [] Respiratory: Denies cough or +shortness of breath. [] Cardiovascular: Denies chest pain or edema. + Palpitations [] GI: Denies abdominal pain, nausea, vomiting, bloody stools or diarrhea. [] : Denies dysuria. [] Musculoskeletal: Denies back pain or joint pain. [] Integument: Denies rash. [] Neurologic: Denies headache, focal weakness or sensory changes. [] Endocrine: Denies polyuria or polydipsia. [] Lymphatic: Denies swollen glands. [] Psychiatric: Denies depression or anxiety. [] Heart Score: C/O Chest Pain: No HEART Score for Chest Pain: HEART Score for Chest Pain Response (Comments) Value History Slighlty/Non-Suspicious 0 ECG Nonspecific Repolarizatio 1 Age > 65 2 Risk Factors 1 or 2 Risk Factors 1 Troponin < Normal Limit 0 Total 4 Risk Factors: Risk Factors: DM, Current or recent (<one month) smoker, HTN, HLP, family history of CAD, obesity. Risk Scores: Score 0 - 3: 2.5% MACE over next 6 weeks - Discharge Home Score 4 - 6: 20.3% MACE over next 6 weeks - Admit for Clinical Observation Score 7 - 10: 72.7% MACE over next 6 weeks - Early Invasive Strategies Allergies: Allergies: Allergies Coded Allergies Type Severity Reaction Last Updated Verified codeine Allergy Intermediate 03/09/16 No morphine Adverse Reaction Intermediate 09/29/20 Yes Physical Exam: PE: Constitutional: Well developed, well nourished, no acute distress, non-toxic appearance. [] HENT: Normocephalic, atraumatic, bilateral external ears normal, oropharynx moist, no oral exudates, nose normal. [] Eyes: PERRLA, EOMI, conjunctiva normal, no discharge. [] Neck: Normal range of motion, no tenderness, supple, no stridor. [] Cardiovascular:Heart rate regular rhythm, no murmur [] Lungs & Thorax: Bilateral breath sounds clear to auscultation [] Abdomen: Bowel sounds normal, soft, no tenderness, no masses, no pulsatile masses. [] Skin: Warm, dry, no erythema, no rash. [] Back: No tenderness, no CVA tenderness. [] Extremities: No tenderness, no cyanosis, no clubbing, ROM intact, no edema. [] Neurologic: Alert and oriented X 3, normal motor function, normal sensory function, no focal deficits noted. [] Psychologic: Affect normal, judgement normal, mood normal. [] Current Patient Data: Vital Signs: Vital Signs Date Time Temp Pulse Resp B/P (MAP) Pulse Ox O2 Delivery O2 Flow Rate FiO2 07/16/21 15:03 97.9 166/93 (117) Room Air 97.9 EKG: EK and read by Dr. Larose as sinus rhythm with inverted T-wave in lead III Radiology/Procedures: Radiology/Procedures: [] Impression: [facility] [address] [place] [address] IMAGING REPORT Signed PATIENT: AIDEE POP ACCOUNT: [id number] : 1945 LOCATION: ER AGE: 76 SEX: M EXAM STATUS: PRE ER ORD. PHYSICIAN: ELENA BAGLEY APRN REASON: PALPITATIONS, SOA PROCEDURE: PORTABLE CHEST 1V Exam performed: One view chest. Indication: Reason: PALPITATIONS, SOA / Spl. Instructions: / History: Date of Service: 07/16/2021 3:10 PM Comparison: None available. Single AP upright portable view chest findings: Cardiomediastinal silhouette is within limits of normal. No acute infiltrates, effusion or pneumothorax is detected. Prominent interstitial markings are seen in in the peripheral aspect of both lungs, likely chronic The bony structures are normal. Impression: No acute cardiopulmonary process is detected. Electronically signed by: Shadia Irwin MD (07/16/2021 3:28 PM) [facility] DICTATED and SIGNED BY: SHADIA IRWIN MD DATE: 07/16/[address] [place] [id number] IMAGING REPORT Signed PATIENT: AIDEE POP ACCOUNT: [id number] : 1945 LOCATION: ER AGE: 76 SEX: M EXAM STATUS: PRE ER ORD. PHYSICIAN: ELENA BAGLEY APRN REASON: PALPITATIONS, SOA PROCEDURE: PORTABLE CHEST 1V Exam performed: One view chest. Indication: Reason: PALPITATIONS, SOA / Spl. Instructions: / History: Date of Service: 07/16/2021 3:10 PM Comparison: None available. Single AP upright portable view chest findings: Cardiomediastinal silhouette is within limits of normal. No acute infiltrates, effusion or pneumothorax is detected. Prominent interstitial markings are seen in in the peripheral aspect of both lungs, likely chronic The bony structures are normal. Impression: No acute cardiopulmonary process is detected. Electronically signed by: Shadia Irwin MD (07/16/2021 3:28 PM) [facility] DICTATED and SIGNED BY: SHADIA IRWIN MD DATE: 07/16/[address] [place] [id number] IMAGING REPORT Signed PATIENT: AIDEE POP ACCOUNT: [id number] : 1945 LOCATION: ER AGE: 76 SEX: M EXAM STATUS: REG ER ORD. PHYSICIAN: ELENA BAGLEY APRN REASON: PALPITATIONS, DROP IN O2, SOA PROCEDURE: CT ANGIOGRAPHY CHEST PQRS Compliance Statement: One or more of the following individualized dose reduction techniques were utilized for this examination: 1. Automated exposure control 2. Adjustment of the mA and/or kV according to patient size 3. Use of iterative reconstruction technique Exam performed: CT pulmonary angiogram of the chest with contrast. Date: 07/16/2021. Comparison:One view chest from earlier today Indication: Palpitation, drop in oxygen saturation Technique: Contiguous helical acquisitions are obtained through the chest during intravenous administration of 80 cc of Omnipaque 350. Sagittal and coronal MIP images were obtained and reviewed Findings: Diagnostic quality: Adequate. Pulmonary emboli: None seen Right heart strain: None Pulmonary arteries: Normal in caliber Heart/Systemic Vasculature: Normal Mediastinum: No mediastinal or hilar adenopathy is seen. Lungs: There is a 6.3 mm noncalcified nodule in the apical segment of the left lower lobe. Neck/Axilla/Body Wall: Normal Upper Abdomen: No abnormality seen. Cholecystectomy. Bones: Mild spondylotic changes Miscellaneous: None Impression: 1. Study is negative for pulmonary embolism. 2. A small noncalcified 6.3 mm nodule in the apical segment of the left lower lobe. Etiology is not clear. Follow-up according to Fleischner Society recommendation. Fleischner Society recommendations for pulmonary nodules: In a low risk patient: <4mm- No follow up required. >4-6mm- 12 month follow up, if unchanged, no further follow up. >6-8mm- 6-12 month follow up, then at 18-24 months if no change. >8mm- 3, 9, 24 month follow up or consideration of PET/CT. In a high risk patient: <4mm- 12 month follow up, if unchanged then no further follow up. >4-6mm- 6-12 month follow up, then at 18-24 months if no change. >6-8mm- 3-6 month follow up, then at 9-12 months and 24 months if no change. >8mm- 3, 9, 24 month follow up or consideration of PET/CT. Electronically signed by: Shadia Irwin MD (07/16/2021 5:07 PM) [facility] DICTATED and SIGNED BY: SHADIA IRWIN MD DATE: 07/16/21 1701 Course & Med Decision Making: Course & Med Decision Making Pertinent Labs and Imaging studies reviewed. (See chart for details) See HPI. Alert and oriented x4. Ambulatory steady gait. Skin pink warm and dry. No extremity edema. Lungs are clear to auscultation in all lobes. Speaks in full clear sentences. Cap refill less than 2 seconds. Blood work unremarkable. EKG shows a sinus rhythm. Vital signs remained stable. He is not tachycardic. He has a regular rhythm. He is 96% on room air. He has no chest pain. CT angio test was negative. Patient follow-up with his primary care provider. [] Milind Disclaimer: Dragon Disclaimer: This electronic medical record was generated, in whole or in part, using a voice recognition dictation system. Departure Departure Impression: Primary Impression: Palpitations Disposition: 01 HOME / SELF CARE / HOMELESS Condition: STABLE Referrals: CLAUDIA MOULTON (PCP) Patient Instructions: Palpitations Additional Instructions: Follow-up with your primary care doctor tomorrow. If you been having chest pain, severe shortness of breath, dizziness or syncope return to the emergency room. Drink plenty of fluids to stay hydrated. ELENA BAGLEY APRN Jul 16, 2021 15:14
[2021-07-16 15:26] LABS: BASO % 1 % (0-3); EOS # 0.5 x10^3/uL (0.0-0.7); EOS % 8 % (0-3); HEMOGLOBIN 14.3 g/dL (13.0-17.5); LYMPH # 2.2 x10^3/uL (1.0-4.8); LYMPH % 32 % (24-48); MEAN CORPUSCULAR HEMOGLOBIN 32 pg (25-35); MEAN CORPUSCULAR HGB CONC 34 g/dL (31-37); MEAN CORPUSCULAR VOLUME 95 fL (79-100); MONO # 0.8 x10^3/uL (0.0-1.1); MONO % 12 % (0-9); NEUT # 3.2 x10^3/uL (1.8-7.7); NEUT % 47 % (31-73); PLATELET COUNT 197 x10^3/uL (140-400); RED BLOOD COUNT 4.44 x10^6/uL (4.30-5.70); RED CELL DISTRIBUTION WIDTH 12.9 % (11.5-14.5); WHITE BLOOD COUNT 6.8 x10^3/uL (4.0-11.0)
--- NOTE | 2021-07-16 15:31 | RAD ---
Exam performed: One view chest. Indication: Reason: PALPITATIONS, SOA / Spl. Instructions: / History: Date of Service: 07/16/2021 3:10 PM Comparison: None available. Single AP upright portable view chest findings: Cardiomediastinal silhouette is within limits of normal. No acute infiltrates, effusion or pneumotho rax is detected. Prominent interstitial markings are seen in in the peripheral aspect of both lungs, likely chronic The bony structures are normal. Impression: No acute cardiopulmonary process is detected. Electronically signed by: Shadia Irwin MD (07/16/2021 3:28 PM) [facility]
[2021-07-16 15:38] LABS: CALCIUM 9.1 mg/dL (8.5-10.1); CREATININE 1.2 mg/dL (0.7-1.3); GFR 58.9; POTASSIUM 3.9 mmol/L (3.5-5.1)
[2021-07-16 15:45] LABS: ALBUMIN 3.9 g/dL (3.4-5.0); ALBUMIN/GLOBULIN RATIO 1.1 (1.0-1.7); MAGNESIUM 1.8 mg/dL (1.8-2.4); TOTAL BILIRUBIN 0.6 mg/dL (0.2-1.0); TOTAL PROTEIN 7.4 g/dL (6.4-8.2)
[2021-07-16 15:51] LABS: BARBITURATES NEG (NEG); BENZODIAZEPINES NEG (NEG); CANNABINOIDS NEG (NEG); COCAINE NEG (NEG); METHADONE NEG (NEG); OPIATES NEG (NEG); PHENCYCLIDINE NEG (NEG)
[2021-07-16 15:58] LABS: AMPHETAMINE/METHAMPHETAMINE NEG (NEG)
[2021-07-16] MEDS ORDERED: IV NORMAL SALINE 500ML BAG 500 ML IV ONE (16:15)
[2021-07-16] MEDS ORDERED: IOHEXOL 350 MG/ML 100 ML VIAL. IV ONE (16:30)
--- NOTE | 2021-07-16 17:09 | RAD ---
RS Compliance Statement: One or more of the following individualized dose reduction techniques were utilized for this examinat ion: 1. Automated exposure control 2. Adjustment of the mA and/or kV according to patient size 3. Use of iterative reconstruction technique Exam performed: CT pulmonary angiogram of the chest with contrast. Date: 07/16/2021. Comparison:One view chest from earlier today Indication: Palpitation, drop in oxygen saturation Technique: Contiguous helical acquisitions are obtained through the chest during intravenous administ ration of 80 cc of Omnipaque 350. Sagittal and coronal MIP images were obtained and reviewed Findings: Diagnostic quality: Adequate. Pulmonary emboli: None seen Right heart strain: None Pulmonary arteries: Normal in caliber Heart/Systemic Vasculature: Normal Mediastinum: No mediastinal or hilar adenopathy is seen. Lungs: There is a 6.3 mm noncalcified nodule in the apical segment of the left lower lobe. Neck/Axilla/Body Wall: Normal Upper Abdomen: No abnormality seen. Cholecystectomy. Bones: Mild spondylotic changes Miscellaneous: None Impression: 1. Study is negative for pulmonary embolism. 2. A small noncalcified 6.3 mm nodule in the apical segment of the left lower lobe. Etiology is not c lear. Follow-up according to Fleischner Society recommendation. Fleischner Society recommendations for pulmonary nodules: In a low risk patient: <4mm- No follow up required. >4-6mm- 12 month follow up, if unchanged, no further follow up. >6-8mm- 6-12 month follow up, then at 18-24 months if no change. >8mm- 3, 9, 24 month follow up or consideration of PET/CT. In a high risk patient: <4mm- 12 month follow up, if unchanged then no further follow up. >4-6mm- 6-12 month follow up, then at 18-24 months if no change. >6-8mm- 3-6 month follow up, then at 9-12 months and 24 months if no change. >8mm- 3, 9, 24 month follow up or consideration of PET/CT. Electronically signed by: Shadia Irwin MD (07/16/2021 5:07 PM) [facility]
[2021-07-16 17:34] VITALS: BP 156/90
--- NOTE | 2021-07-16 18:48 | EKG ---
[facility] [address] [place] [address] Test Date: 2021-07-16 Test Time: 14:59:15 Pat Name: AIDEE POP Department: Room: Gender: M Manager Cargo: : 1945 Requested By: ELENA BAGLEY Order Number: [id number] Reading MD: Claudio Nieves Measurements Intervals [place] Rate: 70 P: 27 UT: 190 QRS: -41 QRSD: 104 T: 3 QT: 384 QTc: 417 Interpretive Statements SINUS RHYTHM ABNORMAL LEFT AXIS DEVIATION LEFT ANTERIOR FASCICULAR BLOCK Electronically Signed On 07-29-2021 22:01:13 CDT by Claudio Nieves
== END 2021-07-16 17:35 | disposition home or self-care (01) ==
LOC: ER 14:42
DX: R00.2 Palpitations (principal); R06.02 Shortness of breath; K21.9 Gastro-esophageal reflux disease without esophagitis; Z88.5 Allergy status to narcotic agent
CPT/HCPCS: 36415; 71045; 71275; 80053; 80307; 83735; 83880; 84443; 84484; 85025; 93005; 96360; 99285; J7040; Q9967

== ENCOUNTER → 2021-09-06 | Outpatient (CLI) | payer MEDICARE, OTHER ==
[~2021-09-06] MED LIST changes: +BUPIVACAINE MPF 0.25% 10 ML VIAL. ONE; +DEXAMETHASONE PRES.FREE 10 MG/ML VIAL. ONE
--- NOTE | 2021-09-06 14:45 | PDOC ---
Progress Note - Pain Clinic Date of Service: DOS: DATE: 09/06/21 TIME: 14:38 Diagnosis: Dx: Lumbar radiculopathy with lumbar degenerative disease and lumbar spondylosis with lumbar postlaminectomy syndrome Right wrist joint pain with osteoarthritis Myofascial pain History or Present Illness: HPI: 76-year-old male returns for follow-up status post lumbar epidural steroid injection last seen May 30, 2021 patient very well with the pain returning in the low back and right lower extremity patient reports his chief complaint today however is mid to upper lumbar back pain and is very tight in sensation which patient describes as a different type of pain in his mid to low back patient reports Rosanna still rating to the right lower extremity as chief complaint is tightness in the low back more on the right side than the left but present bilaterally patient reports no recent injury or accident that he is aware of did have some car trips where he was sitting for prolonged periods but otherwise cannot identify any reason for the pain to be in this particular area and quality. Patient rates as a 10 on scale 10 is worse over the past week 7 on average 3 its least is a 7 [address] patient drives a sharp and shooting aching cramping stabbing dull and tight alternating as well. Patient reports its waking her from sleep at night least once or twice at night as is the pain in his right lower extremity. Patient reports no bowel or bladder incontinence. Physical Exam: VS: Blood pressure is 114/64 pulse 61 respirations 18 temperature 98.6 F height is 5 foot 7 inches weight 223 pounds. PE: PHYSICAL EXAMINATION: GENERAL: The patient is awake, alert, oriented, appropriate, very pleasant demeanor HEENT: Shows normocephalic, atraumatic. Extraocular movements are intact and symmetrical. Oral cavity: Mucous membranes moist and pink. NECK: Shows anterior throat supple without palpable lymphadenopathy noted. Swallow reflex symmetrical. CHEST: Shows normal on inspection. Breath sounds are clear bilaterally, no rales rhonchi or wheezes auscultated. HEART: Shows S1, S2 clear. No murmurs auscultated. ABDOMEN: Soft, nontender, nondistended. No palpable organomegaly is noted. BACK: Shows spine grossly in the midline. Normal-appearing cervical lordotic curvature. There is slightly increased thoracic kyphosis, some minor flattening of the lumbar lordotic curvature. Lumbar paraspinous muscles show symmetrical on inspection, on palpation shows some moderate tenderness diffusely throughout the upper, middle and lower distribution of the paraspinous muscles bilaterally, with significant tenderness in the mid to low distribution the paraspinous musculature in the lumbar distribution on the right with very firm ropelike musculature consistent with trigger point areas of musculature also some on the left side but not as tender as the right side. No specific radiation is demonstrated with palpation but very significant tender areas of musculature with palpation. Patient has significant tenderness with very firm ropelike musculature in the superior gluteus on the right side only, consistent with trigger point areas of musculature as well. The patient has good rotational motion of the lumbar spine, both laterally as well as extension and flexion without significant difficulty. No tenderness over the spinous processes, sacrum or sacroiliac regions. EXTREMITIES: Lower extremities show deep tendon reflexes 1 to in the patellar and tendo calcaneus tendons. Motor exam is 4 on a scale of 5 with right dorsiflexion, extension, quadriceps and hamstring flexion and 5/5 on the left. Peripheral pulses are 1+ posterior tibial. No peripheral edema is noted bilaterally. Lower extremities are warm and dry to touch, equal in color and appearance. SKIN: Shows warm and dry, good turgor. No edema. No sores, rashes or bruising throughout. Procedure: Procedure: Options discussed with the patient. Patient's old chart was reviewed as was his current medication regimen updated current review of systems updated today as well. We will proceed with trigger point injections of the bilateral lumbar paraspinous musculature and gluteus musculature. Risk were discussed including but not limited to bleeding infection possibility of intravascular injection sequelae spread of local anesthetic numbness side effects steroid medication, and port results regarding pain control. Patient understands and wished to proceed. Patient return to clinic in approximately 2 weeks for follow-up, was counseled as to return appointment, activity level, and side effects to be aware of. Medication Injected: Med Injected: Patient sitting position under sterile prep and drape patient's lumbar and gluteus musculature was sterilely prepped and draped in usual fashion. Using a 25-gauge needle after negative aspiration at each site the trigger point areas were identified and injected with a total of 10 cc 0.25 bupivacaine and total of 10 mg dexamethasone. Patient tolerated the procedure well and had no complications. Condition at Discharge: Condition at Discharge: Condition at discharge stable, patient tolerated procedure well and had no complications. CHRISTOPHER ESCOBEDO MD September 06, 2021 14:45
== END | disposition home or self-care (01) ==
LOC: PNCL 13:25
PROVIDERS: ATTEND Anesthesiology
DX: M79.18 Myalgia, other site (principal); M51.16 Intervertebral disc disorders with radiculopathy, lumbar region; M47.26 Other spondylosis with radiculopathy, lumbar region; M19.031 Primary osteoarthritis, right wrist; I10 Essential (primary) hypertension; G47.30 Sleep apnea, unspecified; K21.9 Gastro-esophageal reflux disease without esophagitis; Z79.82 Long term (current) use of aspirin; Z79.899 Other long term (current) drug therapy; Z98.890 Other specified postprocedural states; Z88.5 Allergy status to narcotic agent; Z88.6 Allergy status to analgesic agent
CPT/HCPCS: 20552; J1100; J3490

== ENCOUNTER → 2021-09-22 | Outpatient (CLI) | payer MEDICARE, OTHER ==
[~2021-09-22] MED LIST changes: -BUPIVACAINE MPF 0.25% 10 ML VIAL. ONE; +IOHEXOL 180 MG/ML 10 ML VIAL. ONE
--- NOTE | 2021-09-22 13:23 | PDOC ---
Progress Note - Pain Clinic Date of Service: DOS: DATE: 09/22/21 TIME: 13:20 Diagnosis: Dx: Lumbar radiculopathy with lumbar degenerative disease lumbar spondylosis and lumbar postlaminectomy syndrome Myofascial pain History or Present Illness: HPI: 76-year-old male returns status post trigger point injections bilateral lumbar paraspinous musculature with good results in the reduction of pain in his low back patient's chief complaint today however is pain radiating into the right lower extremity posterior gluteus, posterior thigh lateral thigh anterior thigh medial thigh medial lower leg patient reports is worse with walking standing changing positions rates it at a 9 on scale 10 is worse over the past week 6 on average 4 to [place] is a [address] aching sharp shooting on and off in intensity worse with walking standing better with sitting or laying down generally does not awaken her from sleep at night. Patient reports no bowel or bladder incontinence no loss of motor function with significant fatigability of the right lower extremity with standing and walking. Physical Exam: VS: Blood pressure is 126/69 pulse 57 respirations are 18 temperature is 98.6 F height is 5 feet 7 inches weight 217 pounds PE: PHYSICAL EXAMINATION: GENERAL: The patient is awake, alert, oriented, appropriate, very pleasant in demeanor HEENT: Shows normocephalic, atraumatic. Extraocular movements are intact and symmetrical. Oral cavity: Mucous membranes moist and pink. Dentition is intact. NECK: Shows anterior throat supple without palpable lymphadenopathy noted. Swallow reflex symmetrical. CHEST: Shows normal on inspection. Breath sounds are clear bilaterally, no rales rhonchi or wheezes auscultated. HEART: Shows S1, S2 clear. No murmurs auscultated. ABDOMEN: Soft, nontender, nondistended. No palpable organomegaly is noted. BACK: Shows spine grossly in the midline. Normal-appearing cervical lordotic curvature. There is moderately increased thoracic kyphosis, some flattening of the lumbar lordotic curvature. Lumbar paraspinous muscles show symmetrical on inspection, on palpation shows some moderate tenderness diffusely throughout the upper, middle and lower distribution of the paraspinous muscles, but without specific trigger points, without radiation of pain. The patient has good rotational motion of the lumbar spine, both laterally as well as extension and flexion without significant difficulty. EXTREMITIES: Lower extremities show deep tendon reflexes 1+ in the patellar and tendo calcaneus tendons. Motor exam is 4 on a scale of 5 with right dorsiflexion, extension, quadriceps and hamstring flexion and 5/5 on the left. Peripheral pulses are 1+ posterior tibial. No peripheral edema is noted bilaterally. Lower extremities are warm and dry. SKIN: Shows warm and dry, good turgor. No edema. No sores, rashes or bruising throughout. Procedure: Procedure: Options discussed with patient. Patient's old chart was reviewed his his current medication regimen updated current review of systems updated today as well. We will proceed with a lumbar epidural steroid injection today with fluoroscopic guidance. Risks were discussed including but not limited to: Bleeding, infection, possibility of epidural hematoma and subsequent neurological compromise, dural puncture, headaches, spinal cord and/or nerve damage, side effects of steroid medication, and poor results regarding pain control. Patient understands and wished to proceed. Patient will return to the clinic in approximately 2 weeks for follow-up, was counseled as to return appointment, active level, and side effects to be aware of. Medication Injected: Med Injected: Procedure is lumbar epidural steroid injection under local anesthetic using sterile prep and drape at the L4-5 level using C-arm fluoroscopic guidance in both AP and lateral views medications injected is 20 mg dexamethasone +10mL preservative-free normal saline and 2 mL contrast- condition at discharge is stable patient tolerated procedure well had no complications. Condition at Discharge: Condition at Discharge: Condition at discharge stable, patient tolerated the procedure well and had no complications. CHRISTOPHER ESCOBEDO MD September 22, 2021 13:23
--- NOTE | 2021-09-22 13:24 | PDOC4 ---
Procedure Note: ICD 10 Code: ICD 10 Code: M54.16 M51.36 M96.1 Procedure Note: Patient was consented for lumbar epidural steroid injection with fluoroscopic guidance. Risks were discussed including but not limited to: Bleeding, infection, possibility of epidural hematoma and subsequent neurological compromise, dural puncture, headaches, spinal cord and/or nerve damage, side effects of steroid medication, and poor results regarding pain control. Patient understands and wished to proceed. Procedure is lumbar epidural steroid injection under local anesthetic using sterile prep and drape at the L4-5 level using C-arm fluoroscopic guidance in both AP and lateral views medications injected is 20 mg dexamethasone +10mL preservative-free normal saline and 2 mL contrast- condition at discharge is stable patient tolerated procedure well had no complications. CHRISTOPHER ESCOBEDO MD September 22, 2021 13:23
== END | disposition home or self-care (01) ==
LOC: PNCL 10:15
PROVIDERS: ATTEND Anesthesiology
DX: M51.16 Intervertebral disc disorders with radiculopathy, lumbar region (principal); M47.26 Other spondylosis with radiculopathy, lumbar region; M96.1 Postlaminectomy syndrome, not elsewhere classified; M79.18 Myalgia, other site; I10 Essential (primary) hypertension; G47.30 Sleep apnea, unspecified; K21.9 Gastro-esophageal reflux disease without esophagitis; M19.90 Unspecified osteoarthritis, unspecified site; Z90.49 Acquired absence of other specified parts of digestive tract; Z98.890 Other specified postprocedural states; Z79.899 Other long term (current) drug therapy; Z72.89 Other problems related to lifestyle; Z88.5 Allergy status to narcotic agent; Z88.6 Allergy status to analgesic agent
CPT/HCPCS: 62323; J1100; Q9965